=== PATIENT | female | born 1945 | race Caucasian/White ===

== ENCOUNTER 2022-11-08 10:00 | Outpatient (RCR) | payer MEDICARE, SELFPAY | END 2022-12-13 09:07 | disposition home or self-care (01) | LOC: HO.PTCHIC 10:00 | PROVIDERS: PCP Internal Medicine; Visit Provider Colon & Rectal Surgery | DX: M99.05 Segmental and somatic dysfunction of pelvic region (principal); M62.89 Other specified disorders of muscle | CPT/HCPCS: 97110; 97112; 97140; 97162 ==

== ENCOUNTER 2024-12-09 08:19 | Outpatient (AMB) | payer MEDICARE, SELFPAY ==
--- OUTSIDE RECORDS SUMMARY | 2024-12-09 08:23 | XMS_ITS | Clinical Summary ---
Author Organization [address] [place] [address] [place] [phone] Phone Care Team Providers Care Smoking Pipe Maker Name Role Phone Nathaly Knapp MD Primary Care Prov ider Allergies Active Allergy Reactions Criticality Noted Date Comments Celecoxib 08/31/2008 Diclofenac 08/31/2008 Pill Voltaren. Okay with the gel. Latex Swelling 11/07/2021 Naproxen 08/31/2008 Oxymetazoline 06/11/2012 Nlunufecf-Ydmmav-Kvehjmsv-Sc o p 08/31/2008 Quinine Hcl 11/19/2011 Sulfamethoxazole-Trimethoprim 2010 Medications albuterol HFA (PROAIR HFA ; PROVENTIL HFA ; VENTOLIN HFA) 90 mcg/actuation inhaler Inhale 2 puffs every 6 (six) hours if needed for wheezing or shortness of breath. 4 Active meloxicam (MOBIC) 7.5 mg tablet Route: Take 1 Tablet by mouth daily as needed for Pain (TAKE WITH FOOD AND STAY HYDRATED). - Oral 3 Active mometasone (NASONEX) 50 mcg/actuation nasal spray Administer 1-2 sprays into affected nostril(s) 1 (one) time each day. 3 Active cholecalciferol (VITAMIN D-3) 125 mcg (5,000 unit) capsule Take 1 capsule (5,000 Units total) by mouth 1 (one) time each day. 3 Active psyllium husk, sweetleaf, (Konsyl Daily Fiber, stevia,) 3.5 gram powder in packet Take 1 packet by mouth 1 (one) time each day. 1 packet once a day. MIX IN 2-3 OZ OF APPLE SAUCE AND CONSUME 30 MINUTES BEFORE MEAL 2 Active calcium carbonate-cholec alciferol 500 mg-10 mcg (400 unit) per tablet Take 500 mg by mouth 2 (two) times a day. 9 Active Lactobacillus acidophilus (PROBIOTIC ACIDOPHILUS ORAL) Take 1 capsule by mouth 1 (one) time each day. 9 Active carbidopa-levodo pa (SINEMET) 25-100 mg per tablet Take 2 tablets by mouth 4 (four) times a day. Active omeprazole (PriLOSEC) [address] capsule Take 1 capsule (20 mg total) by mouth 1 (one) time each day. 90 capsule 3 4 05/23/20 25 Active cyanocobalamin (VITAMIN B-12) 250 mcg tablet Take 1 tablet (250 mcg total) by mouth 1 (one) time each day. Active ferrous sulfate 325 mg (65 mg elemental iron) tablet Take 1 tablet (325 mg total) by mouth 1 (one) time each day. 90 each 3 5 06/15/19 26 Active cholestyramine (QUESTRAN) 4 gram packetIndication s:Diverticulosis DISSOLVE AND TAKE ONE PACKET BY MOUTH THREE TIMES A DAY WITH MEALS 90 packet 11 5 Active rasagiline (AZILECT) 0.5 mg tablet Take 1 tablet (0.5 mg total) by mouth 1 (one) time each day. Active levothyroxine (SYNTHROID, LEVOTHROID) 112 mcg tablet TAKE ONE TABLET BY MOUTH EVERY DAY 90 tablet 2 5 Active doxycycline (MONODOX) 100 mg capsule Take 1 capsule (100 mg total) by mouth 2 (two) times a day. TAKE ONE CAPSULE BY MOUTH TWICE A DAY FOR 7 DAYS 5 Active Active Problems Problem Noted Date Diagnosed Date History of COVID-19 02/20/2022 Iron deficiency anemia 07/27/2021 Osteoporosis 07/20/2021 Rheumatic fever 06/03/2019 Overview (07/31/2023): In childhood GERD (gastroesophageal reflux disease) 9 Overview (07/31/2023): Dr. Quiroz Night blindness 06/03/2019 RAD (reactive airway disease) 06/03/2019 Parkinson disease ([facility] V24, [facility] V28) Overview (07/31/2023): Diagnosed [address] Quezada Assessment & Plan (10/14/2024 9:42 AM EDT): Assessment & Plan (06/16/2024 8:26 AM EST): Follows with neurology, currently on Sinemet. Recent falls, using the walker for more stability. Previously referred to PT for balance but not seen. Will place a new referral. Recommended to continue the medications as prescribed and keep the appointments with the specialist. Orders: Ambulatory referral to Physical Therapy and Athletic Training; Future Marginal ulcer 09/18/2018 Vertigo 03/05/2018 Tremor 02/24/2018 Diverticulosis 12/29/2017 Aortic atherosclerosis ([facility] V24) 12/17/2017 Overview (07/31/2023): Comments: CXR 06/18/11 calcification of aorta Hypothyroidism 12/17/2017 Assessment & Plan (10/14/2024 9:42 AM EDT): Assessment & Plan (06/16/2024 8:26 AM EST): On Levothyroxine 112 mg a day patient is asymptomatic, last TSH within normal limits, stable. We will continue same medication. Will recheck levels before her next visit. Orders: Thyroid stimulating hormone; Future Vitamin D deficiency 12/17/2017 Internal hemorrhoids 12/05/2017 Allergic rhinitis 12/15/2012 Encounters Date Type Department Care Team Description 10/27/2024 Telephone Adult Medicine [address] [phone] Nathaly Knapp MD Provider Call Back 10/27/2024 Telephone Adult Medicine [address] [phone] Nathaly Knapp MD Health Care Proxy 10/21/2024 10:49 AM EDT - 10/21/2024 11:59 PM EDT Hospital Encounter [facility] [address] [place] [phone] Discharge Disposition: Home or Self Care 10/20/2024 10:00 AM EDT - 10/20/2024 11:59 PM EDT Hospital Encounter [facility] [address] [place] [phone] Discharge Disposition: Home or Self Care 10/19/2024 10:00 AM EDT - 10/19/2024 11:59 PM EDT Hospital Encounter [facility] [address] [place] [phone] Discharge Disposition: Home or Self Care 10/19/2024 Telephone Orthopedics [address] [phone] Randy Izaguirre PA paperwork 10/19/2024 Telephone Adult Medicine [address] [phone] Nathaly Knapp MD Referral 10/19/2024 Lab [facility] [address] [place] [phone] Echo Zambrano MD Seizure disorder (CMS/HCC V24, [facility] V28) 10/18/2024 Lab [facility] [address] [place] [phone] Echo Zambrano MD Seizure disorder ([facility] V24, [facility] V28) 10/15/2024 Lab [facility] [address] [place] [phone] Echo Zambrano MD Seizure disorder ([facility] V24, [facility] V28) 10/14/2024 8:00 AM EDT Office Visit Adult Medicine [address] [phone] Nathaly Knapp MD Encounter for annual general medical examination with abnormal findings in adult (Primary Dx); Hypothyroidism, unspecified type; Parkinson's disease without dyskinesia, with fluctuating manifestations ([facility] V24, [facility] V28); Lymphedema; Advance care planning 10/14/2024 Telephone Adult Medicine [address] [phone] Nathaly Knapp MD Letter for School/Work 10/14/2024 Telephone Orthopedic Surgery [facility] [address] [phone] Caitlyn Oswald MA Letter for School/Work 10/12/2024 2:30 PM EDT Office Visit Orthopedics [address] [phone] Randy Izaguirre PA Closed nondisplaced fracture of shaft of third metacarpal bone of right hand with routine healing, subsequent encounter (Primary Dx) 10/12/2024 2:09 PM EDT - 10/12/2024 11:59 PM EDT Hospital Encounter XRAY [address] [phone] Closed nondisplaced fracture of shaft of third metacarpal bone of right hand with routine healing, subsequent encounter Discharge Disposition: Home or Self Care 10/07/2024 5:14 PM EDT - 10/07/2024 8:41 PM EDT Emergency [facility] [address] [place] [phone] Lower extremity edema (Primary Dx) Discharge Disposition: Home or Self Care 10/07/2024 Telephone Adult Medicine [address] [phone] Nathaly Knapp MD Cellulitis; call back 09/27/2024 9:30 AM EDT Treatment [facility] Occupational Therapy [address] [place] [phone] Ghislaine Brown, LANDEROS 09/23/2024 8:30 AM EDT Treatment [facility] Occup[facility] Therapy [address] [phone] Ghislaine Brown, LANDEROS 09/16/2024 8:30 AM EDT Treatment [facility] Occupational Therapy [address] [place] [phone] Ghislaine Brown, LANDEROS 09/16/2024 Telephone Adult Medicine [address] [phone] Nathaly Knapp MD Forms/questionnaires 09/14/2024 8:00 AM EDT Evaluation [facility] Occupational Therapy [address] [place] [phone] Abhijit De Luna, OT Closed nondisplaced fracture of shaft of third metacarpal bone of right hand with routine healing, subsequent encounter 09/14/2024 Telephone Adult Medicine [address] [phone] Nathaly Knapp MD [facility] [id number]) 09/14/2024 Plan of Care Documentation [facility] [address] [place] [phone] 09/13/2024 9:03 AM EDT - 09/13/2024 11:59 PM EDT Hospital Encounter [address] [phone] Discharge Disposition: Home or Self Care 09/13/2024 8:45 AM EDT Office Visit Orthopedics - [place] [address] [place] [phone] Randy Izaguirre PA Closed nondisplaced fracture of shaft of third metacarpal bone of right hand with routine healing, subsequent encounter (Primary Dx) from Last 3 Months Immunizations Name Administration Dates Next Due Influenza trivalent, 0.5mL ( Fluzone High-dose) 65yo and older 02/11/2023,05/22/2022,03/16/2021,02/11,03/06/2019,03/08/2018,03/26/2017 ,04/02/2016,02/18/2014,03/25/2013 Influenza trivalent, 0.5mL, preservative free (Fluarix; FluLaval; Fluzone) ages 6mo and older (Afluria) 3 years and older 03/12/2012,02/20/2011,03/06/2010 Influenza, Unspecified 05/22/2022 Moderna (age 6mo & older) Bi valent, COVID-19, 0.5 mL or 0.25 mL dosage 10/21/2022 Moderna SARS-CoV-2 COVID-19, mRNA, LNP-S, preservative free 04/12/2021 Pfizer (ages 12 & older) Biv alent, COVID-19 05/22/2022 Pneumococcal conjugate 13 va lent (Prevnar 13, PCV13) 2mo and older 06/07/2015 Pneumococcal polysaccharide 23 valent (Pneumovax 23) 2yo and older 09/01/2012 Td Tetanus diptheria (Tdvax) 7yo and older 07/20/2021 Tdap Tetanus diptheria acell ular pertussis (Boostrix; Adacel) 7yo and older 10/23/2022,07/04/2009 Surgical History Surgery Date Site/Laterality Comments LAPAROSCOPIC GASTRIC BANDING [phone] PROCEDURE: LAP ADJUSTABLE GASTRIC BAND OTHER SURGICAL HISTORY 2010 PROCEDURE: WY LAPS GSTR RSTCV PX W/BYP&SM INT RCNSTJ WRIST SURGERY PROCEDURE: HISTORICAL WRIST SURGERY OTHER SURGICAL HISTORY PROCEDURE: WY OSTEOTOMY CALCANEUS W/WO INTERNAL FIXATION; COMMENT: removal of spurs with Dr. Ugalde TONSILLECTOMY 1957 PROCEDURE: HISTORICAL TONSILLECTOMY CHOLECYSTECTOMY 1985 PROCEDURE: HISTORICAL CHOLECYSTECTOMY APPENDECTOMY PROCEDURE: HISTORICAL APPENDECTOMY NASAL SEPTUM SURGERY PROCEDURE: WY SEPTOPLASTY/SUBMUCOUS RESECJ W/WO CARTILAGE GRF; COMMENT: deviation correction for sinus infections SHOULDER SURGERY 12/08/2017 PROCEDURE: HISTORICAL SHOULDER SURGERY; COMMENT: Dr. 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; COMMENT: Hx of surgery, symptomatic RX per Dr Alejandro 01/2020, unless worsening History of COVID-19 02/20/2022 DX:History o f COVID-19 Thyroid activity decreased Parkinson's disease (CMS/HCC V24, CMS/HCC V28) Family History Medical History Relation Name Comments Parkinson's Disease Aunt Heart attack Father Alzheimer's disease Mother Relation Name Status Comments Aunt Father (Age 76) Mother (Age 86) Sister 1 Janice Alive Sister 2 Christina Alive Social History Tobacco Use Types Packs/Day Years Used Date Smoking Tobacco: Former Smokeless Tobacco: Never Tobacco Cessation:Counseling Given: Not Answered Housing Instability Answer Date Recorde d Are you worried that in the next 2 months you may not have stable housing? No 10/13/2024 Food Access & Nutrition Answer Date Rec orded Do you have access to a vari ety of food including fruits and vegetables? Yes 10/13/2024 Access to Healthcare Answer Date Record ed Within the last 3 months, ho w many times did you visit the emergency department for your medical care? 1 05/05/2024 Health Literacy Answer Date Recorded How often do you need to hav e someone help you when you read instructions, pamphlets, or other written material from your doctor or pharmacy? Rarely 10/13/2024 Caregiver: How often do you need to have someone help you when you read instructions, pamphlets, or other written material from your doctor or pharmacy? Not on file 10/13/2024 Financial Risk Answer Date Recorded How hard is it for you to pa y for the very basics like food, housing, medical care, and air conditioning / heating? Somewhat hard 10/13/2024 Transportation Answer Date Recorded Has the lack of transportati on kept you from meetings, work, or from getting things needed for daily living? No Has the lack of transportati on kept you from medical appointments or from getting medications? No 10/13/2024 Social Isolation Answer Date Recorded How often do you feel lonely or isolated from th ose around you? Rarely 10/13/2024 Food Risk Answer Date Recorded Within the past 12 months we worried whether our food would run out before we got money to buy more. Never true 10/13/2024 Within the past 12 months th e food we bought just didn't last and we didn't have money to get more. Never true 10/13/2024 Dependent Care Answer Date Recorded Do you need help finding or paying for care for your loved ones. For example, manager child or elderly care for an older adult? No 10/13/2024 Education Answer Date Recorded Do you think completing more education or training, like finishing a GED, going to college, or learning a trade, would be helpful for you? No 10/13/2024 Employment and Income Answer Date Recor ded During the last four weeks, have you been actively looking for work? No 10/13/2024 Living Situation Answer Date Recorded What is your living situation? 0 10/13/2024 Comments No Sex and Gender Information Value Date Recorded Sex Assigned at Female 08/27/2024 8:24 PM EDT Legal Sex Female 6:23 AM EST Gender Identity Female 08/27/2024 8:24 PM EDT Sexual Orientation Not on file Obstetrics History Last Filed Vital Signs Vital Sign Reading Time Taken Comments Blood Pressure 122/68 10/14/2024 8:11 AM EDT Pulse 81 10/14/2024 8:11 AM EDT Temperature 36 C (96.8 F) 10/14/2024 8:11 AM EDT Respiratory Rate 14 10/14/2024 8:11 AM EDT Oxygen Saturation 100% 10/07/2024 8:37 PM EDT Inhaled Oxygen Concentration - - Weight 70.6 kg (155 lb 9.6 oz) 10/14/2024 8:11 A M EDT Height 157.5 cm (5' 2 ) 10/14/2024 8:11 AM EDT Body Mass Index 28.46 10/14/2024 8:11 AM EDT Plan of Treatment Upcoming Encounters Date Type Department Care Team (Late st Contact Info) Description 12/15/2024 1:00 PM EDT Office Visit Orthopedics [address] [phone] Randy Izaguirre PA [address] [place] [address] 01/17/2025 9:45 AM EDT Office Visit [facility] [address] [phone] Nathaly Knapp MD [address] [place] [address] Health Maintenance Due Date Last Done Comments Zoster Vaccines (1 of 2) 1996 RSV Immunization Adult Patients (1 - 1-dose 75+ series) 2021 COVID-19 Vaccine ( season) 2024 06/17/2023, 03/03/2023, 10/21/2022, Additional history exists Depression Screening 10/13/2025 10/13/2024 Social Influencers of Health Screening 10/13/2025 10/13/2024 Falls Risk Assessment 10/14/2025 10/14/2024 , 10/14/2024, 09/02/2024, Additional history exists Medicare Annual Wellness Visit 10/14/2025 10/14/2024 Cholesterol Screening (Lipid Panel) 07/11/2028 07/11/2023, 07/11/2023 DTaP,Tdap,and Td Vaccines (4 - Td or Tdap) 10/23/2032 10/23/2022, 07/20/2021, 07/04/2009 Osteoporosis Screening (Bone Density Screening) 07/01/2033 07/01/2023, 12/01/2020 Pneumococcal Vaccine: 50+ Years Completed 06/07/2015, 09/01/2012 Hepatitis C Screening Completed 01/11/2021 Influenza Vaccine Discontinued 02/11/2023, , 05/22/2022, Additional history exists HIB Vaccines Aged Out No longer eligi ble based on patient's age to complete this topic HPV Vaccines Aged Out No longer eligi ble based on patient's age to complete this topic Hepatitis A Vaccines Aged Out No long er eligible based on patient's age to complete this topic Hepatitis B Vaccines Aged Out No long er eligible based on patient's age to complete this topic IPV Vaccines Aged Out No longer eligi ble based on patient's age to complete this topic MMR Vaccines Aged Out No longer eligi ble based on patient's age to complete this topic Meningococcal ACWY Vaccine Aged Out N o longer eligible based on patient's age to complete this topic Meningococcal B Vaccine Aged Out No l onger eligible based on patient's age to complete this topic RSV Immunization Patients Under 20 months Aged Out No longer eligible based on patient's age to complete this topic Varicella Vaccines Aged Out No longer eligible based on patient's age to complete this topic Goals Goal Patient Goal Type Associated Problems Recent Progress Patient-Stated? Author Pt goal General Yes Abhijit De Luna, OT Note: To be able to use my hand so I can go back to work and do what I need to do OT STG 4-6 visits General No Abhijit De Luna, OT Note: Patient will report <=3/10 pain in L hand at rest Pt will report <= 8/10 pain R hand with activity, Patient will demo R wrist AROM>= 35 for increased ease of donning shirt Pt will demo R digits <= 1 CM from DPC to be able to hold a cup Patient will demo improved functional use of R upper extremity as evidenced by Quick Dash score <= 65 to be able to shower with increased ease, and Patient will perform initial HEP MOD I Pt will adhere to precuations MOD I OT LTG 16 visits General No Abhijit De Luna, OT Note: Patient will report <=2/10 pain in R hand, Patient will demo R hand AROM WFL for cooking, Patient will demo R narrow gauge operator strength >= 20# to be able to hold a pot for cooking, Patient will demo improved functional use of R upper extremity as evidenced by Quick Dash score <= 45 to be able to use a mar register, and Patient will perform HEP MOD I Procedures Procedure Name Priority Date/Time Associated Diagnosis Comments CONTINUOUS EEG Routine 10/21/2024 12:11 PM EDT Seizure disorder (CMS/HCC V24, CMS/HCC V28) CONTINUOUS EEG Routine 10/20/2024 3:33 PM EDT Seizure disorder (CMS/HCC V24, CMS/HCC V28) CONTINUOUS EEG Routine 10/19/2024 12:03 PM EDT Seizure disorder (CMS/HCC V24, CMS/HCC V28) XR HAND 3+ VIEWS RIGHT Routine 10/12/2024 2:19 PM EDT Closed nondisplaced fracture of shaft of third metacarpal bone of right hand with routine healing, subsequent encounter CULTURE BLOOD STAT 10/07/2024 6:49 PM EDT VAS US DUPLEX LOWER EXT VENOUS RIGHT STAT 10/07/2024 6:27 PM EDT Lower extremity edema C-REACTIVE PROTEIN STAT Add-on 10/07/2024 5: 46 PM EDT CBC WITH AUTO DIFFERENTIAL STAT 10/07/2024 5:46 PM EDT LACTATE, WITH REFLEX STAT 10/07/2024 5:46 PM EDT COMPREHENSIVE METABOLIC PANEL STAT 10/07/2024 5:46 PM EDT CBC AND DIFFERENTIAL STAT 10/07/2024 5:46 PM EDT CULTURE BLOOD STAT 10/07/2024 5:46 PM EDT XR HAND 3+ VIEWS RIGHT Routine 09/13/2024 9:11 AM EDT Closed nondisplaced fracture of shaft of third metacarpal bone of right hand with routine healing, subsequent encounter LIPID PANEL Routine 07/11/2023 DXA BONE DENSITY STUDY 1+ SITS AXIAL SKEL Routine 07/01/2023 11:41 AM EST Asymptomatic menopausal state HEPATITIS C SCREENING Routine 01/11/2021 from Last 3 Months or Most Recently Relevant to Health Maintenance Results * Continuous EEG (10/21/2024 12:11 PM EDT) Echo Berger MD - 11/02/2024 3:23 PM EDT Table formatting from the original result was not included. Images from the original result were not included. Neuro[facility] [address] [place] [address] Ambulatory Electroencephalogram Report Date of service: 10/21/24 Patient Name: Zahida Gonzalez Date of : 1945 Age: 79 y.o. Gender: female Procedure Order: Continuous EEG Ordering Provider: Echo Zambrano MD Reason for Exam: Order Questions Answers Type of monitoring Unmonitored With video? No Diagnosis listed on Order: Seizure disorder (CMS/HCC V24, CMS/HCC V28) This is a recurrent day study. Please see report with final results. us Echo Zambrano MD NEUROLOGY ORDERABLES Final Result * Continuous EEG (10/20/2024 3:33 PM EDT) Echo Berger MD - 10/29/2024 12:27 PM EDT Table formatting from the original result was not included. Images from the original result were not included. [facility] [address] [place] [address] Ambulatory Electroencephalogram Report Date of service: 10/20/24 Patient Name: Zahida Gonzalez Date of : 1945 Age: 79 y.o. Gender: female Procedure Order: Continuous EEG Ordering Provider: Echo Zambrano MD Reason for Exam: Order Questions Answers Type of monitoring Unmonitored With video? No Diagnosis listed on Order: Seizure disorder ([facility] V24, [facility] V28) Procedure Performed: 48 hr EEG EEG Technical Description: This study was performed using the 10-20 [employer] Electrode System placement and single channel EKG electrode on Trex recorder. Settings included: low frequency filter of 1 Hz, high frequency filter of 70 Hz, sensitivity of 7 uV/mm, a display speed of 30 mm/sec, with a 60 Hz notched filter applied as appropriate. Modifications in these parameters were made as necessary for further waveform resolution. Video Recording: No Description: This is a 48-hour ambulatory EEG. Patient did not keep a diary and did not report any significant events. Each day of EEG was separately reviewed and included wakefulness and sleep. Background EEG rhythm during wakefulness was symmetric alpha posteriorly lower amplitude faster anteriorly. During both days left temporal sharp waves were noted with phase reversal at T3. There was also a rare right temporal sharp wave with phase reversal at T4. Cardiac lead did not reveal any significant abnormality. Impression: Abnormal 48-hour ambulatory EEG suggestive of bitemporal irritability. Echo Zambrano MD NEUROLOGY ORDERABLES Final Result * Continuous EEG (10/19/2024 12:03 PM EDT) Narrative Echo Zambrano MD - 11/02/2024 3:22 PM EDT Table formatting from the original result was not included. Images from the original result were not included. [facility] [address] [place] [id number] Ambulatory Electroencephalogram Report Date of service: 10/19/24 Patient Name: Zahida Gonzalez Date of : 1945 Age: 79 y.o. Gender: female Procedure Order: Continuous EEG Ordering Provider: Echo Zambrano MD Reason for Exam: Order Questions Answers Type of monitoring Unmonitored With video? No Diagnosis listed on Order: Seizure disorder ([facility] V24, [facility] V28) This is a recurrent day study. Please see report with final results. us Echo Zambrano MD NEUROLOGY ORDERABLES Final Result * XR Hand 3+ Views Right (10/12/2024 2:19 PM EDT) Only the most recent of2 resultswithin the time period is included. Anatomical Region Laterality Modality Upper Extremities, Hand Right Radiogra phic Imaging 10/12/2024 11:0 3 PM EDT Impressions 10/12/2024 11:10 PM EDT Progressive healing of the 3rd metacarpal fracture. POS - [id number] -------- FINAL REPORT -------- Dictated By: Augustina Colon Dictated Date: 10/12/2024 23:03 ET Assigned Physician: Augustina Colon Reviewed and Electronically Signed By: Augustina Colon Signed Date: 10/12/2024 23:10 ET Workstation ID: [id number] Transcribed By: Self Edit Transcribed Date: 10/12/2024 23:03 ET Narrative 10/12/2024 11:10 PM EDT EXAM: Right hand x-ray HISTORY: Follow-up 3rd metacarpal fracture. COMPARISON: 09/13/2024 and 08/20/2024 FINDINGS: 3 views were performed. Progressive bony callus formation and less distinct appearance of the oblique mildly displaced fracture of the distal 3rd metacarpal shaft. No new fracture. Multifocal degenerative changes which are most prominent at the 1st CMC and 1st MCP joints have similar appearance. Procedure Note Augustina Colon MD - 10/12/2024 EXAM: Right hand x-ray HISTORY: Follow-up 3rd metacarpal fracture. COMPARISON: 09/13/2024 and 08/20/2024 FINDINGS: 3 views were performed. Progressive bony callus formation and less distinct appearance of theoblique mildly displaced fracture of the distal 3rd metacarpal shaft. Nonew fracture. Multifocal degenerative changes which are most prominent atthe 1st CMC and 1st MCP joints have similar appearance. IMPRESSION: Progressive healing of the 3rd metacarpal fracture. POS - [id number] -------- FINAL REPORT -------- Dictated By: Augustina Colon Dictated Date: 10/12/2024 23:03 ET Assigned Physician: Augustina Colon Reviewed and Electronically Signed By: Augustina Colon Signed Date: 10/12/2024 23:10 ET Workstation ID: [id number] Transcribed By: Self Edit Transcribed Date: 10/12/2024 23:03 ET Randy PINEDA IMG XR PROCEDURES Final Result * Blood culture (10/07/2024 6:49 PM EDT) Only the most recent of2 resultswithin the time period is included. Culture, Blood No growth at 5 days 10/12/2024 8:01 PM EDT [facility] Blood Venous blood specimen / Unknown Venipuncture / Unknown 10/07/2024 6:49 PM EDT 10/07/2024 7:14 PM EDT Dominic Mcdaniel DO LAB MICROBIOLOGY - GENERAL ORD ERABLES Final Result [facility] [address] [place] [address], [place] [phone] * Vascular US Duplex Lower Extremity Venous Right (10/07/2024 6:27 PM EDT) Anatomical Region Laterality Modality Vascular, Abdomen Ultrasound 10/07/2024 6:45 PM EDT Impressions 10/07/2024 6:45 PM EDT NO RIGHT LOWER EXTREMITY DEEP VENOUS THROMBOSIS. -------- FINAL REPORT -------- Dictated By: ROCKY DICKENS Dictated Date: 10/07/2024 18:45 ET Assigned Physician: ROCKY DICKENS Reviewed and Electronically Signed By: ROCKY DICKENS Signed Date: 10/07/2024 18:45 ET Workstation ID: [id number] Transcribed By: Self Edit Transcribed Date: 10/07/2024 18:45 ET Narrative 10/07/2024 6:45 PM EDT PROCEDURE: VAS US DUPLEX LOWER EXT VENOUS RIGHT INDICATION: Edema, erythema TECHNIQUE: 2-D and color Doppler imaging of the right lower extremity venous vasculature with compression and augmentation maneuvers. COMPARISON: No priors available. FINDINGS: There is normal flow, compression, and augmentation from the common femoral through the popliteal vein. Visualized calf veins are patent Procedure Note Rocky Dickens MD - 10/07/2024 PROCEDURE: VAS US DUPLEX LOWER EXT VENOUS RIGHT INDICATION: Edema, erythema TECHNIQUE: 2-D and color Doppler imaging of the right lower extremityvenous vasculature with compression and augmentation maneuvers. COMPARISON: No priors available. FINDINGS: There is normal flow, compression, and augmentation from the commonfemoral through the popliteal vein. Visualized calf veins are patent IMPRESSION: NO RIGHT LOWER EXTREMITY DEEP VENOUS THROMBOSIS. -------- FINAL REPORT -------- Dictated By: ROCKY DICKENS Dictated Date: 10/07/2024 18:45 ET Assigned Physician: ROCKY DICKENS Reviewed and Electronically Signed By: ROCKY DICKENS Signed Date: 10/07/2024 18:45 ET Workstation ID: [id number] Transcribed By: Self Edit Transcribed Date: 10/07/2024 18:45 ET Carlota PINEDA CV VASCULAR PROCEDURES Fin al Result * Lactate, with reflex (10/07/2024 5:46 PM EDT) LACTIC ACID 0.8 0.4 - 2.0 mmol/L LAB CHEMISTRY METHOD 10/07/2024 6:44 PM EDT [facility] Blood Venous blood specimen / Unknown Venipuncture / Unknown 10/07/2024 5:46 PM EDT 10/07/2024 5:50 PM EDT us Dominic Mcdaniel DO LAB BLOOD ORDERABLES Final Res ult [facility] [address] [place] [address], [place] [phone] * (ABNORMAL) CBC auto differential (10/07/2024 5:46 PM EDT) [facility] WBC 5.6 4.8 - 10.8 K/mcL LAB HEMETOLOGY METHOD 10/07/2024 5:55 PM EDT [facility] RBC 4.40 3.80 - 4.80 M/mcL LAB HEMETOLOGY METHOD 10/07/2024 5:55 PM EDT [facility] Hemoglobin 11.7 11.5 - 16.0 g/dL LAB HEMETOLOGY METHOD 10/07/2024 5:55 PM EDT [facility] Hematocrit 38.2 35.0 - 47.0 % LAB HEMETOLOGY METHOD 10/07/2024 5:55 PM EDT [facility] MCV 87.4 79.0 - 98.0 FL LAB HEMETOLOGY METHOD [facility] MCH 26.8(L) 27.0 - 32.0 pcg LAB HEMETOLOGY METHOD 10/07[facility]2024 5:[facility] MCHC 30.6(L) 32.0 - 37.0 g/dL LAB HEMETOLOGY METHOD 10/07/2024 5:[facility] RDW 15.9(H) 11.0 - 15.0 % LAB HEMETOLOGY METHOD 10/07/2024 5:55 PM EDT [facility] Platelets 261 130 - 400 K/mcL LAB HEMETOLOGY METHOD 10/07[facility]2024 5[facility] MPV 9.5 7.0 - 11.0 FL LAB HEMETOLOGY METHOD 10/07/2024 5:[facility] NRBC 0.0 <1.0 % LAB HEMETOLOGY METHOD 10/07/2024 5:55 PM EDT [facility] NRBC Absolute 0.00 <0.10 K/mcL LAB HEMETOLOGY METHOD 10/07/2024 5:55 PM EDT [facility] Neutrophils Relative 71.9 % LAB HEMETOLOGY METHOD 10/07/2024 5:55 PM [facility] Lymphocytes Relative 16.0 % LAB HEMETOLOGY METHOD [facility]/07[facility]2024 5[facility] Monocytes Relative 9.2 % LAB HEMETOLOGY METHOD 10/07/2024 5:55 PM [facility] Eosinophils Relative 2.0 % LAB HEMETOLOGY METHOD 10/07/2024 5:55 PM [facility] Basophils Relative 0.5 % LAB HEMETOLOGY METHOD 10/07/2024 5:55 PM [facility] Immature Granulocytes Relative 0.4 % LAB HEMETOLOGY METHOD 10/07/2024 5:55 PM [facility] Neutrophils Absolute 4.06 1.50 - 7.00 K/mcL LAB HEMETOLOGY METHOD 10/07/2024 5:55 PM [facility] Lymphocytes Absolute 0.90(L) 1.00 - 5.00 K/mcL LAB HEMETOLOGY METHOD 10/07/2024 5:55 PM [facility] Monocytes Absolute 0.52 0.20 - 1.00 K/mcL LAB HEMETOLOGY METHOD 10/07/2024 5:55 PM [facility] Eosinophils Absolute 0.11 0.00 - 0.50 K/mcL LAB HEMETOLOGY METHOD 10/07/2024 5:55 PM [facility] Basophils Absolute 0.03 0.00 - 0.20 K/mcL LAB HEMETOLOGY METHOD 10/07/2024 5:55 PM [facility] Immature Granulocytes Absolute 0.02 0.00 - 0.03 K/mcL LAB HEMETOLOGY METHOD 10/07/2024 5:55 PM EDT [facility] Blood Venous blood specimen / Unknown Venipuncture / Unknown 10/07/2024 5:46 PM EDT 10/07/2024 5:51 PM EDT Dominic Mcdaniel DO LAB BLOOD ORDERABLES Final Res ult Performing Organization Address City/[facility]/ZIP Co de Phone Number [facility] [address] [place] [address], [place] [phone] * C-reactive protein (10/07/2024 5:46 PM EDT) Pathologist [facility] C-Reactive Protein <0.29 <=0.50 mg/dL LAB CHEMISTRY METHOD 10/07/2024 7:24 PM EDT [facility] Blood Venous blood specimen / Unknown Venipuncture / Unknown 10/07/2024 5:46 PM EDT 10/07/2024 5:50 PM EDT Carlota PINEDA LAB BLOOD ORDERABLES Final Result Performing Organization Address [facility]/ZIP Co de Phone Number [facility] [address] [place] [address], [place] [phone] * (ABNORMAL) Comprehensive metabolic panel (10/07/2024 5:46 PM EDT) Pathologist [facility] Sodium 142 133 - 145 mmol/L LAB CHEMISTRY METHOD 10/07/2024 6:50 PM EDT [facility] Potassium 4.3 3.5 - 5.5 mmol/L LAB CHEMISTRY METHOD 10/07/2024 6:50 PM EDT [facility] Chloride 107 96 - 110 mmol/L LAB CHEMISTRY METHOD 10/07/2024 6:50 PM EDT [facility] CO2 30 21 - 32 mmol/L LAB CHEMISTRY METHOD 10/07/2024 6:50 PM EDT [facility] Anion Gap 5 3 - 11 LAB CHEMISTRY METHOD 10/07/2024 6:50 PM [facility] Glucose 125(H) 70 - 100 mg/dL LAB CHEMISTRY METHOD 10/07/2024 6:50 PM [facility] BUN 30(H) 5 - 25 mg/dL LAB CHEMISTRY METHOD 10/07/2024 6:50 PM [facility] Creatinine 0.82 0.50 - 1.10 mg/dL LAB CHEMISTRY METHOD 10/07/2024 6:50 PM [facility] eGFR 73 >=60 mL/min/1. 73m2 LAB CHEMISTRY METHOD 10/07/2024 6:50 PM [facility] Comment:Calculation based on the Chronic Kidney Disease Epidemiology Collaboration (CKD-EPI) equation refit without adjustment for race. BUN/Creatinine Ratio 36.6 LAB CHEMISTRY METHOD 10/07/2024 6:50 PM [facility] Calcium 9.0 8.5 - 10.5 mg/dL LAB CHEMISTRY METHOD 10/07/2024 6:50 PM [facility] AST (SGOT) 26 10 - 42 unit/L LAB CHEMISTRY METHOD 10/07/2024 6:50 PM [facility] ALT (SGPT) 9(L) 10 - 60 unit/L LAB CHEMISTRY METHOD 10/07/2024 6:50 PM [facility] Alkaline Phosphatase 122(H) 42 - 121 unit/L LAB CHEMISTRY METHOD 10/07/2024 6:50 PM [facility] Total Protein 7.1 6.0 - 8.0 g/dL LAB CHEMISTRY METHOD 10/07/2024 6:50 PM [facility] Albumin 3.4 3.2 - 5.0 g/dL LAB CHEMISTRY METHOD 10/07/2024 6:50 PM [facility] Total Bilirubin 0.4 0.0 - 1.4 mg/dL LAB CHEMISTRY METHOD 10/07/2024 6:50 PM EDT [facility] Blood Venous blood specimen / Unknown Venipuncture / Unknown 10/07/2024 5:46 PM EDT 10/07/2024 5:50 PM EDT Dominic Mcdaniel DO LAB BLOOD ORDERABLES Final Res ult [facility] [address] [place] [address], [place] [phone] * (ABNORMAL) Lipid panel (07/11/2023) LDL/HDL Ratio 2 0 - 4 Triglycerides 91 0 - 150 mg/dL Cholesterol 209(A) 0 - 200 mg/dL HDL 124 >=40 mg/dL LDL Cholesterol 67 0 - 100 mg/dL Blood Venous blood specimen / Unknown Historical Provider LAB BLOOD ORDERABLES Marisol l Result * DXA BONE DENSITY STUDY 1+ SITS AXIAL SKEL (07/01/2023 11:41 AM EST) Anatomical Region Laterality Modality Bone Densitometr y 02/11/2023 9:20 AM EDT Narrative 07/01/2023 7:06 PM EST BONE DENSITY SCAN (DEXA): FINDINGS: Lumbar Spine L1-L3, L4 excluded T-score is -0.8. (SD relative to 20-29 y/o adult) Z-score is 1.6. (SD relative to age matched peers) This is considered normal by WHO criteria. Left Hip T-score is -2.6. Z-score is -0.4. This is considered osteoporosis by WHO criteria. Comparison exam(s): 12/01/2020. 4.5% loss of left hip bone mineral density which is statistically significant at the 95% confidence level. No statistically significant change in lumbar spine bone mineral density. Lateral survey view of the thoracolumbar spine shows no significant compression deformities. IMPRESSION: IMPRESSION: Osteoporosis by WHO criteria. The [facility] Department of Internal Medicine recommends using National Osteoporosis Foundation (NOF) guidelines in treatment decisions related to osteoporosis. NOF guidelines suggest considering treatment for postmenopausal women and men aged 50 or older presenting with the following: History of hip or vertebral fracture. T-score = -2.5 (DXA) at the femoral neck, total hip, or spine, after appropriate evaluation to exclude secondary causes. Low bone mass (T-score between -1.0 and -2.5 at the femoral neck or spine) AND a 10-year probability of a hip fracture = 3% OR a 10-year probability of a major osteoporosis-related fracture = 20% based on the [place]-adapted WHO algorithm Please note that all treatment decisions require clinical judgment and consideration of individual patient factors, including patient preferences, co-morbidities, previous drug use, risk factors not captured in the FRAX model (e.g., frailty, falls, vitamin D deficiency, increased bone turnover, interval significant decline in bone density) and possible under- or over-estimation of fracture risk by FRAX. Optional alternative screening schedule based on alec Chavarria., [facility] June 27, 2011 for patients with osteopenia (based on hip BMD T-score) is as follows: * advanced osteopenia (T scores -2.00 to -2.49), BMD testing every year * moderate osteopenia (T scores -1.50 to -1.99), BMD testing every 5 years mild osteopenia or normal BMD (T scores -1.50 and higher), BMD testing every 15 years Procedure Note Augustina Colon MD - 01/26/2024 BONE DENSITY SCAN (DEXA): FINDINGS: Lumbar Spine L1-L3, L4 excluded T-score is -0.8. (SD relative to 20-29 y/o adult) Z-score is 1.6. (SD relative to age matched peers) This is considered normal by WHO criteria. Left Hip T-score is -2.6. Z-score is -0.4. This is considered osteoporosis by WHO criteria. Comparison exam(s): 12/01/2020. 4.5% loss of left hip bone mineraldensity which is statistically significant at the 95% confidence level. No statisticallysignificant change in lumbar spine bone mineral density. Lateral survey view of the thoracolumbar spine shows no significantcompression deformities. IMPRESSION: IMPRESSION: Osteoporosis by WHO criteria. The [facility] Department of Internal Medicine recommendsusing National Osteoporosis Foundation (NOF) guidelines in treatment decisions related toosteoporosis. NOF guidelines suggest considering treatment for postmenopausal women and menaged 50 or older presenting with the following: History of hip or vertebral fracture. T-score = -2.5 (DXA) at the femoral neck, total hip, or spine, afterappropriate evaluation to exclude secondary causes. Low bone mass (T-score between -1.0 and -2.5 at the femoral neck or spine)AND a 10-year probability of a hip fracture = 3% OR a 10-year probability of a majorosteoporosis-related fracture = 20% based on the [place]-adapted WHO algorithm Please note that all treatment decisions require clinical judgment andconsideration of individual patient factors, including patient preferences, co- morbidities,previous drug use, risk factors not captured in the FRAX model (e.g., frailty, falls, vitaminD deficiency, increased bone turnover, interval significant decline in bone density) andpossible under- or over-estimation of fracture risk by FRAX. Optional alternative screening schedule based on alec Chavarria., [facility] for patients with osteopenia (based on hip BMD T-score) is as follows: * advanced osteopenia (T scores -2.00 to -2.49), BMD testing every year * moderate osteopenia (T scores -1.50 to -1.99), BMD testing every 5years mild osteopenia or normal BMD (T scores -1.50 and higher), BMD testingevery 15 years Maribel PINEDA G DXA PROCEDURES Final Result * Hepatitis C Screening (01/11/2021) Pathologist Count includes the [facility] Hepatitis C Screening Abstracted Historical Provider HEALTH MAINTENANCE Final Result from Last 3 Months or Most Recently Relevant to Health Maintenance Insurance [employer] Advance Directives * Full Code - Confirmed (Latest Code Status on File) Date Activated Date Inactivated Comments 08/28/2024 1:37 AM 08/28/2024 1:[address] at[facility] was ascertained in the following way: Code status discussion: discussion with patient To update the patient's code status, place a code status order. Do not modify or discontinue any currently active code status orders. 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
--- NOTE | 2024-12-09 08:30 | A.OFFVIS_ITS ---
Intake Visit Reasons: Sooner appt falls and eyesight issues HPI Comments Details: 79 years old woman with Parkinson's disease that started around 2018 with the right hand shaking and difficulty walking. She also has significant osteoarthritis compounding her difficulty for balance and walking and resulting in multifactorial gait disorder. In 2024, she was admitted at [facility] with an episode of loss of consciousness and reported that she had been having episodes of seeing tunnel vision and then collapsing. Her MRI of brain had revealed mild microvascular ischemic disease an EEG at [facility] in 2024 revealed bitemporal sharps. She was here complaining the recently she was working and standing when she had another episode and she could not explain that episode. She fell down and sustained minor injuries. She had been taking the medicine. Physical Exam Neuro Other: Mental Status: Alert with normal orientation and attention. Normal spontaneous speech, fluency, and comprehension. No obvious issues with mood and memory. Affect is appropriate. Cranial Nerves: CN II: Visual peterson full to confrontation, visual acuity intact. CN III, IV, : Pupils equal, round, reactive to light and accommodation. Extraocular movements are normal. CN V: Facial sensation is normal. CN VII: Facial movements symmetrical. CN VIII: Hearing intact to bedside conversation is normal. Motor: Bulk and tone normal in all extremities. No significant muscle weakness in arms and legs. No drift. Gait and Station: No obvious gait abnormality. No ataxia or instability. Sensory: Intact to light touch, pinprick, and vibration. Romberg is negative. Extrapyramidal: Full facial expressions and blinking. No rigidity. Movements are appropriate with no tremor or abnormality. Speech: Normal; no dysarthria or tremor. Assessment & Plan Assessment & Plan (1) Parkinson disease: Comment: CT brain WO at [facility] in Aug 2024: OK 48 hr EEG at [facility] in October 2024: Bitemp sharps CT brain WO at [facility] in Jul 2024: OK EEG at off in Apr 2024: WNL CT brain WO at [facility] in Apr 2023: Minimal atrophy MRI brain WO at [facility] in Apr 2023: Mild MVD Code(s): G20.A1 - Parkinson's disease without dyskinesia, without mention of fluctuations Category: Medical Qualifiers: Dyskinesia presence: without dyskinesia Fluctuating manifestations: with fluctuating manifestations Qualified Code(s): G20.A2 - Parkinson's disease without dyskinesia, with fluctuations (2) Seizure disorder: Code(s): G40.909 - Epilepsy, unspecified, not intractable, without status epilepticus Category: Medical (3) Osteoarthritis: Code(s): M19.90 - Unspecified osteoarthritis, unspecified site Category: Medical Qualifiers: Osteoarthritis location: unspecified site Osteoarthritis type: other Qualified Code(s): M19.90 - Unspecified osteoarthritis, unspecified site (4) Multifactorial gait disorder: Code(s): R26.89 - Other abnormalities of gait and mobility Category: Medical Plan 1. Parkinson's disease: She would continue carbidopa levodopa 25 were 102 tablets 4 times a day with rasagiline 0.5 mg daily 2. Seizure disorder: She has advised to increase dose of levetiracetam to 500 mg twice a day 3. Multifactorial gait disorder: She should use walker on regular basis and take appropriate precautions to avoid any falls. Medications: New levetiracetam 500 mg PO BID 180 tabs 0RF 90 days carbidopa-levodopa 25-100 mg (Sinemet) 2 tabs PO QID 720 tabs 0RF 90 days rasagiline 0.5 mg PO DAILY 90 tabs 0RF 90 days Coding Level of Care Code Est Pt Level 4 (33837) Diagnoses Parkinson's disease without dyskinesia, with fluctuating manifestations G20.A2 Dyskinesia presence: without dyskinesia Fluctuating manifestations: with fluctuating manifestations Seizure disorder G40.909 Other type of osteoarthritis, unspecified site M19.90 Osteoarthritis location: unspecified site Osteoarthritis type: other Multifactorial gait disorder R26.89
== END 2024-12-09 08:46 | disposition home or self-care (01) ==
LOC: HO.HSM 08:19
PROVIDERS: PCP Internal Medicine; Visit Provider Psychiatry & Neurology Neurology
DX: G20.A2 Parkinson's disease without dyskinesia, with fluctuations (principal); G40.909 Epilepsy, unspecified, not intractable, without status epilepticus; M19.90 Unspecified osteoarthritis, unspecified site; R26.89 Other abnormalities of gait and mobility
CPT/HCPCS: 99214

== ENCOUNTER → 2024-12-09 08:19 | Outpatient (BNVA) | payer MEDICARE, SELFPAY | PROVIDERS: PCP Internal Medicine; Visit Provider Psychiatry & Neurology Neurology | DX: G20.A2 Parkinson's disease without dyskinesia, with fluctuations (principal); G40.909 Epilepsy, unspecified, not intractable, without status epilepticus; M19.90 Unspecified osteoarthritis, unspecified site; R26.89 Other abnormalities of gait and mobility | CPT/HCPCS: 99212 ==

== ENCOUNTER 2025-01-27 14:05 | Outpatient (AMB) | payer MEDICARE, SELFPAY ==
--- OUTSIDE RECORDS SUMMARY | 2025-01-27 14:14 | XMS_ITS | Clinical Summary ---
Author Organization [address] [place] [address] [place] [phone] Phone Care Team Providers Care Regulatory Submissions Specialist Name Role Phone Nathaly Knapp MD Primary Care Prov ider Allergies Active Allergy Reactions Criticality Noted Date Comments Celecoxib 08/31/2008 Diclofenac 08/31/2008 Pill Voltaren. Okay with the gel. Latex Swelling 11/07/2021 Naproxen 08/31/2008 Oxymetazoline 06/11/2012 Ppqealkoo-Pmhovq-Vbatotji-Sc o p 08/31/2008 Quinine Hcl 11/19/2011 Sulfamethoxazole-Trimethoprim 2010 Medications albuterol HFA (PROAIR HFA ; PROVENTIL HFA ; VENTOLIN HFA) 90 mcg/actuation inhaler Inhale 2 puffs every 6 (six) hours if needed for wheezing or shortness of breath. 4 Active mometasone (NASONEX) 50 mcg/actuation nasal spray [...] EVERY DAY 90 tablet 2 5 Active levETIRAcetam (KEPPRA) 250 mg tablet Take 1 tablet (250 mg total) by mouth 2 (two) times a day. 5 Active tiZANidine (ZANAFLEX) 2 mg tablet TAKE ONE TABLET BY MOUTH EVERY 8 HOURS NEEDED FOR MUSCLE SPASMS FOR 5 DAYS 5 Active Active Problems Problem Noted Date Diagnosed Date History of COVID-19 02/20/2022 Iron deficiency anemia 07/27/2021 Osteoporosis 07/20/2021 Rheumatic fever 06/03/2019 Overview (07/31/2023): In childhood GERD (gastroesophageal reflux disease) 9 Overview (07/31/2023): Dr. Quiroz Night blindness 06/03/2019 RAD (reactive airway disease) 06/03/2019 Parkinson disease ([facility] V24, [facility] V28) Overview (07/31/2023): Diagnosed 2018 Follows with [...] 03/05/2018 Tremor 02/24/2018 Diverticulosis 12/29/2017 Aortic atherosclerosis ([facility] V24) 12/17/2017 Overview (07/31/2023): Comments: CXR 06/18/11 [...] Encounters Date Type Department Care Team Description 12/15/2024 1:00 PM EDT Office Visit Orthopedics - [address] [phone] Randy Izaguirre PA Closed nondisplaced fracture of shaft of third metacarpal bone of right hand with routine healing, subsequent encounter (Primary Dx); Closed nondisplaced fracture of third metacarpal bone of right hand with routine healing, unspecified portion of metacarpal, subsequent encounter 12/15/2024 12:15 PM EDT - 12/15/2024 11:59 PM EDT Hospital Encounter [address] [phone] Closed fracture of right hand with routine healing, subsequent encounter Discharge Disposition: Home or Self Care 12/13/2024 Telephone Adult Medicine [address] [phone] Nathaly Sr MD Referral (Ortho) 10/27/2024 Telephone Adult Medicine [address] [phone] Nathaly Sr MD Provider Call Back 10/27/2024 [facility] [employer] [facility] Adult [address] [phone] Nathaly Sr MD Health Care Proxy from Last 3 Months Immunizations Name Administration [...] Surgery Date Site/Laterality Comments LAPAROSCOPIC GASTRIC BANDING [id number] PROCEDURE: LAP ADJUSTABLE GASTRIC BAND OTHER SURGICAL HISTORY 2010 PROCEDURE: UT LAPS GSTR RSTCV PX W/BYP&SM INT RCNSTJ WRIST SURGERY PROCEDURE: HISTORICAL WRIST SURGERY OTHER SURGICAL HISTORY PROCEDURE: UT OSTEOTOMY CALCANEUS W/WO INTERNAL FIXATION; COMMENT: removal of spurs with Dr. Ugalde TONSILLECTOMY 1957 PROCEDURE: HISTORICAL TONSILLECTOMY CHOLECYSTECTOMY 1984 PROCEDURE: HISTORICAL CHOLECYSTECTOMY APPENDECTOMY PROCEDURE: HISTORICAL APPENDECTOMY NASAL SEPTUM SURGERY PROCEDURE: UT SEPTOPLASTY/SUBMUCOUS RESECJ W/WO CARTILAGE GRF; COMMENT: deviation correction for sinus infections SHOULDER SURGERY 12/08/2017 PROCEDURE: HISTORICAL SHOULDER SURGERY; COMMENT: Dr. 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 For example, early childhood assistant or elderly care for an older adult? [...] Care Team (Late st Contact Info) Description 02/09/2025 8:00 AM EDT Office Visit Adult Medicine [facility] [address] [place], [place] [phone] Maribel Roberts PA [address] [place] [address] Health Maintenance Due Date Last Done Comments Zoster Vaccines (1 of 2) 1996 RSV Immunization Adult Patients (1 - 1-dose 75+ series) 2021 COVID-19 Vaccine ( season) 2024 06/17/2023, 03/03/2023, 10/21/2022, Additional history exists Social Influencers of Health Screening 10/13/2025 10/13/2024 [...] Discontinued 02/11/2023, , 05/22/2022, Additional history exists Depression Screening Completed 10/13/2024 HIB Vaccines Aged Out No longer eligi [...] MOD I OT LTG 16 visits General Abhijit Patel, OT Note: Patient will report <=2/10 pain in R hand, Patient will demo R hand AROM WFL for cooking, 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 >= 20# to be able to hold a pot for cooking, Patient will demo improved functional use of R upper extremity as evidenced by Quick Dash score <= 45 to be able to use a mar register, and Patient will perform HEP MOD I Procedures Procedure Name Priority Date/Time Associated Diagnosis Comments XR HAND 3+ VIEWS RIGHT Routine 12/15/2024 12:39 PM EDT Closed fracture of right hand with routine healing, subsequent encounter LIPID PANEL Routine 07/11/2023 DXA BONE DENSITY STUDY 1+ SITS AXIAL SKEL Routine 07/01/2023 11:41 AM EST Asymptomatic menopausal state HEPATITIS C SCREENING Routine 01/11/2021 from Last 3 Months or Most Recently Relevant to Health Maintenance Results * XR Hand 3+ Views Right (12/15/2024 12:39 PM EDT) Anatomical Region Laterality Modality Upper Extremities, Hand Right [facility] 12/15/2024 5:18 PM EDT Impressions 12/15/2024 5:20 PM EDT Healing fracture third metacarpal as described. -------- FINAL REPORT -------- Dictated By: Zeinab Casanova Dictated Date: 12/15/2024 17:18 ET Assigned Physician: Zeinab Casanova Reviewed and Electronically Signed By: Zeinab Casanova Signed Date: 12/15/2024 17:20 ET Workstation ID: [id number] Transcribed By: Self Edit Transcribed Date: 12/15/2024 17:18 ET Narrative 12/15/2024 5:20 PM EDT RIGHT HAND VIEWS: 3 HISTORY: Fracture. Prior: Right hand 10/12/2024, 09/13/2024, and 08/20/2024. FINDINGS: There has been further healing of the fracture of the distal third metacarpal shaft. The fracture line is no longer visible. Degenerative changes of the right hand, most pronounced at the first CMC joint, are unchanged. Procedure Note Zeinab Casanova MD - 12/15/2024 RIGHT HAND VIEWS: 3 HISTORY: Fracture. Prior: Right hand 10/12/2024, 09/13/2024, and 08/20/2024. FINDINGS: There has been further healing of the fracture of the distal thirdmetacarpal shaft. The fracture line is no longer visible. Degenerative changes of the right hand, most pronounced at the first CMCjoint, are unchanged. IMPRESSION: Healing fracture third metacarpal as described. -------- FINAL REPORT -------- Dictated By: Zeinab Casanova Dictated Date: 12/15/2024 17:18 ET Assigned Physician: Zeinab Casanova Reviewed and Electronically Signed By: Zeinab Casanova Signed Date: 12/15/2024 17:20 ET Workstation ID: [id number] Transcribed By: Self Edit Transcribed Date: 12/15/2024 17:18 ET Randy PINEDA IMG XR PROCEDURES Final Result * (ABNORMAL) Lipid panel (07/11/2023) LDL/HDL Ratio [...] IMPRESSION: IMPRESSION: Osteoporosis by WHO criteria. The [facility] Department of Internal Medicine recommends using [...] IMPRESSION: IMPRESSION: Osteoporosis by WHO criteria. The [facility] Department of Internal Medicine recommendsusing National [...] higher), BMD testingevery 15 years Maribel PINEDA IMG DXA PROCEDURES Final Result * Hepatitis C Screening (01/11/2021) Hepatitis C Screening Abstracted Historical Provider MD HEALTH MAINTENANCE Final Result from Last 3 [...] currently active code status orders. Care Teams Regulatory Submissions Specialist Relationship Specialty Start Date End Date Nathaly Knapp MD [address] [place] [phone] PCP - General Internal Medicine 01/07/22
--- OUTSIDE RECORDS SUMMARY | 2025-01-27 14:15 | XMS_ITS | Clinical Summary ---
Author Organization Formerly [facility] Address [address] [place] [phone] Phone Care Team Providers Care Recovery Collector Name Role Phone Nathaly Correa MD Primary Care Prov ider Allergies Active Allergy Reactions Criticality Noted Date Comments Diclofenac Sodium Unknown 03/27/2024 Patient reports she cannot take it orally due to medication reaction Medications albuterol 90 mcg/actuation inhaler Inhale 2 puffs into the lungs every 6 (six) hours as needed for wheezing. Active amantadine HCl (SYMMETREL) 100 mg capsule Take 100 mg by mouth 2 (two) times a day. Active carbidopa-levod opa (SINEMET CR) 25-100 mg per CR tablet Take 1 tablet by mouth 2 (two) times a day. Active entacapone (COMTAN) 200 mg tablet Take 200 mg by mouth 3 (three) times a day. Active ferrous sulfate 325 mg (65 mg [place] iron) tablet Take 325 mg by mouth daily with breakfast. Active levothyroxine (SYNTHROID, LEVOTHROID) 112 MCG tablet Take 112 mcg by mouth every morning. Active meloxicam (MOBIC) 7.5 MG tablet Take 7.5 mg by mouth daily. Active mometasone (NASONEX) 50 mcg/actuation nasal spray 2 sprays by Nasal route daily. Active omeprazole (PRILOSEC) 20 MG capsule Take 20 mg by mouth daily. Active opicapone (ONGENTYS) 50 mg capsule Take 50 mg by mouth nightly at bedtime. Active primidone (MYSOLINE) 50 MG tablet Take 50 mg by mouth 4 (four) times a day. Active rOPINIRole (REQUIP) 1 MG tablet Take 1 mg by mouth. Active traMADoL (ULTRAM) 50 mg tablet Take 50 mg by mouth every 6 (six) hours as needed for pain (specific location in comments). Active triamcinolone acetonide 0.025 % cream Apply 1 Application topically 2 (two) times a day. Active Social History Tobacco Use Types Packs/Day Years Used Date Smoking Tobacco: Never Assessed Education Answer Date Recorded Are you interested in more education? Not on jumana e 03/27/2024 Are you concerned about learning? Not on file 03/27/2024 No 03/27/2024 No 03/27/2024 Digital Access Answer Date Recorded No 03/27/2024 No 03/27/2024 Reliable internet access at home? Not on file 03/27/2024 Device with a working camera? Not on file Intimate Partner Violence Answer Date R ecorded Are you denied basic needs s uch as food, clothing, or medical care? No 03/27/2024 In the past 12 months have y ou been in a relationship with a person who hurts, threatens, or tries to control you? No 03/27/2024 Are you denied basic needs s uch as food, clothing, or medical care? No 03/27/2024 In the past 12 months have y ou been in a relationship with a person who hurts, threatens, or tries to control you? No 03/27/2024 Comments Unknown Sex and Gender Information Value Date Recorded Sex Assigned at Not on file Legal Sex Female 3:01 PM EDT Gender Identity Not on file Sexual Orientation Not on file Last Filed Vital Signs Vital Sign Reading Time Taken Comments Blood Pressure 164/74 03/27/2024 5:33 PM EDT Pulse 74 03/27/2024 5:33 PM EDT Temperature 36.3 C (97.4 F) 03/27/2024 5:33 PM EDT Respiratory Rate 20 03/27/2024 5:33 PM EDT Oxygen Saturation 97% 03/27/2024 5:33 PM EDT Inhaled Oxygen Concentration - - Weight 81.6 kg (180 lb) 03/27/2024 3:20 PM EDT Height 167.6 cm (5' 6 ) 03/27/2024 3:20 PM EDT Body Mass Index 29.05 03/27/2024 3:20 PM EDT Plan of Treatment Health Maintenance Due Date Last Done Comments Adult Td,Tdap Booster 1945 TSH LEVEL 1945 DEPRESSION SCREENING 1958 SMOKING Hx and SMOKELESS TOB ACCO SCREENING 08/25/1959 HEPATITIS C SCREENING 1964 PNEUMOCOCCAL VACCINES (50+ y ears) (1 of 1 - PCV) 1996 ZOSTER VACCINES (1 of 2) 1996 OSTEOPOROSIS SCREENING INITI AL (ONE-TIME) 08/25/2011 RSV VACCINE (1 - 1-dose 75+ series) 2021 COVID-19 VACCINE ( - 2023-2 5 season) 2024 LIPID PANEL 07/11/2028 07/11/2023 HEPATITIS A VACCINES Aged Out No long er eligible based on patient's age to complete this topic HIB VACCINES Aged Out No longer eligi ble based on patient's age to complete this topic MENINGOCOCCAL VACCINES (ACWY) Aged Out No longer eligible based on patient's age to complete this topic MENINGOCOCCAL VACCINES (B) Aged Out N o longer eligible based on patient's age to complete this topic Medical Devices Not on file Insurance [employer] Care Teams Recovery Collector Relationship Specialty Start Date End Date Nathaly Correa MD [address] [place] [address] [phone] PCP - General Internal Medicine 03/27/24 Additional Source Comments The information contained in this document represents components of the legal health record. It is not the complete legal health record.[facility]
--- OUTSIDE RECORDS SUMMARY | 2025-01-27 14:15 | XMS_ITS ---
Author Name [facility] Organization Unknown Care Team Organization Name Specialty Phone Email Start Date End Da te [facility] ACO 01/26/2025 [facility] Nathaly Correa Primary Care 08/14/2022 01/26/2024 [facility] Garima Hartley Primary Care 04/16/2022
--- NOTE | 2025-01-27 14:28 | A.OFFVIS_ITS ---
Intake Visit Reasons: Weakness Allergies atropine (From ) Allergy (Unknown, Verified 01/25/25 08:36) Unknown celecoxib (From Celebrex) Allergy (Unknown, Verified 01/25/25 08:36) Unknown diclofenac (From Voltaren) Allergy (Unknown, Verified 01/25/25 08:36) Unknown hyoscyamine (From ) Allergy (Unknown, Verified 01/25/25 08:36) Unknown naproxen Allergy (Unknown, Verified 01/25/25 08:36) Unknown phenobarbital (From ) Allergy (Unknown, Verified 01/25/25 08:36) Unknown quinine Allergy (Unknown, Verified 01/25/25 08:36) Unknown scopolamine (From ) Allergy (Unknown, Verified 01/25/25 08:36) Unknown Medication List - Last Reconciled 01/27/25 by Echo Zambrano MD carbidopa-levodopa 25-100 mg (Sinemet) 2 tabs PO QID 90 days carbidopa-levodopa 36.25-145 mg ER (Rytary) 1 cap PO TID cholestyramine (with sugar) 4 gram 1 ea PO TID levetiracetam 500 mg PO BID 90 days levothyroxine 112 mcg PO DAILY omeprazole 20 mg PO DAILY primidone 100 mg PO BEDTIME rasagiline 0.5 mg PO DAILY 90 days HPI Comments Details: 79 years old woman with Parkinson's disease that started around 2018 with the right hand shaking and difficulty walking. She also has significant osteoarthritis compounding her difficulty for balance and walking and resulting in multifactorial gait disorder. In 2024, she was admitted at [facility] with an episode of loss of consciousness and reported that she had been having episodes of seeing tunnel vision and then collapsing. Her MRI of brain had revealed mild microvascular ischemic disease an EEG at [facility] in 2024 revealed bitemporal sharps. She is presenting with mobility issues and management of Parkinson's Disease. She reports considerable difficulty with leg movement, increasing the risk of falls. She nearly fell while attempting to keep her head from hitting a counter, illustrating the severity of her mobility issues. Her condition requires consideration of a wheelchair due to the lack of leg response. She is prescribed Carbidopa/Levodopa but reports worsening vision when not taken consistently. She experiences improvement with the medication but faces challenges maintaining dosing schedule. The patient also manages hypothyroidism with Levothyroxine and uses Rasagiline in conjunction with her Parkinson's medications. [facility] Medical History (Updated 01/25/25 @ 08:35 by Shubham Villegas [facility]) Osteoarthritis Encephalopathy Multifactorial gait disorder Seizure disorder Review of Systems Const Details: - Neurological: Reports frequent freezing episodes and difficulty in leg movements. Denies seizures. - Vision: Reports vision blurring if medication schedule is delayed. - Musculoskeletal: Reports needing potential use of a wheelchair due to mobility issues. - Medication: Medication review includes Carbidopa/Levodopa, Rasagiline, and Levothyroxine. Physical Exam Neuro Other: She is alert and awake with normal spontaneity of speech fluency comprehension and somewhat flat affect. Main issue was that she has significant difficulty walking. He was walking in his small steps slow paced gait frequently freezing using a walker. Assessment & Plan Assessment & Plan (1) Parkinson disease: Comment: CT brain WO at [facility] in Aug 2024: [place] 48 hr EEG at [facility] in October 2024: Diana galarzas CT brain WO at [facility] in Jul 2024: [place] EEG at off in Apr 2024: WNL CT brain WO at [facility] in Apr 2023: Minimal atrophy MRI brain WO at [facility] in Apr 2023: Mild MVD Code(s): G20.A1 - Parkinson's disease without dyskinesia, without mention of fluctuations Category: Medical Qualifiers: Dyskinesia presence: without dyskinesia Fluctuating manifestations: with fluctuating manifestations Qualified Code(s): G20.A2 - Parkinson's disease without dyskinesia, with fluctuations (2) Multifactorial gait disorder: Code(s): R26.89 - Other abnormalities of gait and mobility Category: Medical (3) Osteoarthritis: Code(s): M19.90 - Unspecified osteoarthritis, unspecified site Category: Medical Qualifiers: Osteoarthritis location: unspecified site Osteoarthritis type: other Qualified Code(s): M19.90 - Unspecified osteoarthritis, unspecified site (4) Seizure disorder: Code(s): G40.909 - Epilepsy, unspecified, not intractable, without status epilepticus Category: Medical Plan Impression: a: Parkinson disease with significant freezing and lack of response to regular carbidopa/levodopa b: Seizure do Rec: a: Will try Rytary instead of regular levodopa b: Continue Rasagaline .5 daily c: Levetircetam 500mg bid Medications: New carbidopa-levodopa 36.25-145 mg ER (Rytary) divide evenly over waking hours 1 cap PO TID 270 caps 0RF Coding Level of Care Code Est Pt Level 4 (40759) Diagnoses Parkinson's disease without dyskinesia, with fluctuating manifestations G20.A2 Dyskinesia presence: without dyskinesia Fluctuating manifestations: with fluctuating manifestations Multifactorial gait disorder R26.89 Other type of osteoarthritis, unspecified site M19.90 Osteoarthritis location: unspecified site Osteoarthritis type: other Seizure disorder G40.909
== END 2025-01-27 14:45 | disposition home or self-care (01) ==
LOC: HO.HSM 14:06
PROVIDERS: PCP Internal Medicine; Visit Provider Psychiatry & Neurology Neurology
DX: G20.A2 Parkinson's disease without dyskinesia, with fluctuations (principal); R26.89 Other abnormalities of gait and mobility; M19.90 Unspecified osteoarthritis, unspecified site; G40.909 Epilepsy, unspecified, not intractable, without status epilepticus
CPT/HCPCS: 99214

== ENCOUNTER → 2025-01-27 14:05 | Outpatient (BNVA) | payer MEDICARE, SELFPAY | PROVIDERS: PCP Internal Medicine; Visit Provider Psychiatry & Neurology Neurology | DX: G20.A2 Parkinson's disease without dyskinesia, with fluctuations (principal); R26.89 Other abnormalities of gait and mobility; M19.90 Unspecified osteoarthritis, unspecified site | CPT/HCPCS: 99212 ==

== ENCOUNTER 2025-03-24 11:02 | Outpatient (AMB) | payer MEDICARE, SELFPAY ==
--- NOTE | 2025-03-24 11:12 | A.OFFVIS_ITS ---
Intake Visit Reasons: 3m PD/SZ Allergies atropine (From ) Allergy (Unknown, Verified 01/25/25 08:36) Unknown celecoxib (From Celebrex) Allergy (Unknown, Verified 01/25/25 08:36) Unknown diclofenac (From Voltaren) Allergy (Unknown, Verified 01/25/25 08:36) Unknown hyoscyamine (From ) Allergy (Unknown, Verified 01/25/25 08:36) Unknown naproxen Allergy (Unknown, Verified 01/25/25 08:36) Unknown phenobarbital (From ) Allergy (Unknown, Verified 01/25/25 08:36) Unknown quinine Allergy (Unknown, Verified 01/25/25 08:36) Unknown scopolamine (From ) Allergy (Unknown, Verified 01/25/25 08:36) Unknown Medication List - Last Reconciled 03/24/25 by Echo Zambrano MD carbidopa-levodopa 25-100 mg (Sinemet) 2 tabs PO QID 90 days carbidopa-levodopa 36.25-145 mg ER (Rytary) 1 cap PO TID cholestyramine (with sugar) 4 gram 1 ea PO TID levetiracetam 500 mg PO BID levothyroxine 112 mcg PO DAILY omeprazole 20 mg PO DAILY primidone 100 mg PO BEDTIME rasagiline 0.5 mg PO DAILY 90 days HPI Comments Details: 79 years old woman with Parkinson's disease that started around 2018 with the right hand shaking and difficulty walking. She also has significant osteoarthritis compounding her difficulty for balance and walking and resulting in multifactorial gait disorder. In 2024, she was admitted at [facility] with an episode of loss of consciousness and reported that she had been having episodes of seeing tunnel vision and then collapsing. Her MRI of brain had revealed mild microvascular ischemic disease an EEG at [facility] in 2024 revealed bitemporal sharps. She is presenting with mobility issues related to Parkinson's Disease. She describes difficulty in walking that has worsened, correlating with medication changes, specifically, the introduction of Rytary. As a result, she has experienced two falls in the past week, although she did not sustain injuries. The patient expresses concern about episodes where her legs become nonresponsive, impacting her ability to walk even short distances. Historical treatment includes Rytary and Rosagiline, amongst others. The patient also reports longstanding issues with urinary and fecal incontinence and a history of peptic ulcer disease post-gastric bypass managed with Omeprazole. The patient outlines her struggles with mobility and wishes to transition from a rollator to a wheelchair for ease of movement, particularly considering her professional duties and daily living tasks. [facility] Medical History (Updated 01/25/25 @ 08:35 by Shubham Villegas [facility]) Osteoarthritis Encephalopathy Multifactorial gait disorder Seizure disorder Review of Systems Const Details: - Neurological: Reports worsening mobility, unsteady gait, occasional leg immobility. - Gastrointestinal: Reports peptic ulcer disease, managed post-gastric bypass; Denies additional symptoms. - Urological: Reports urinary incontinence. - Other: Reports fecal incontinence. Physical Exam Neuro Other: Mental Status: Alert and oriented to person, place, and time. Normal attention. Normal spontaneous speech, fluency, and comprehension. No obvious issues with mood and memory. Affect is appropriate. Cranial Nerves: CN II: Visual peterson full to confrontation, visual acuity intact. CN III, IV, : Pupils equal, round, reactive to light and accommodation. Extraocular movements are normal. CN V: Facial sensation is normal. CN VII: Facial movements symmetrical. CN VIII: Hearing intact to bedside conversation is normal. CN IX, X: Palate elevates symmetrically. CN XI: Shoulder shrug and head turn symmetrical. CN XII: Tongue midline without atrophy or fasciculations. In wheel chair. Extrapyramidal: Full facial expressions and blinking. No rigidity. Movements are appropriate with no tremor or abnormality. Speech: Normal; no dysarthria or tremor. Assessment & Plan Assessment & Plan (1) Parkinson disease: Comment: CT brain WO at [facility] in Aug 2024: [place] 48 hr EEG at [facility] in October 2024: Bitemp sharps CT brain WO at [facility] in Jul 2024: [place] EEG at off in Apr 2024: WNL CT brain WO at [facility] in Apr 2023: Minimal atrophy MRI brain WO at [facility] in Apr 2023: Mild MVD Code(s): G20.A1 - Parkinson's disease without dyskinesia, without mention of fluctuations Category: Medical Qualifiers: Dyskinesia presence: without dyskinesia Fluctuating manifestations: with fluctuating manifestations Qualified Code(s): G20.A2 - Parkinson's disease without dyskinesia, with fluctuations (2) Seizure disorder: Code(s): G40.909 - Epilepsy, unspecified, not intractable, without status epilepticus Category: Medical (3) Multifactorial gait disorder: Code(s): R26.89 - Other abnormalities of gait and mobility Category: Medical Plan Impression: a: Parkinson disease with significant freezing and lack of response to regular carbidopa/levodopa b: Seizure do Rec: a: Will try Rytary instead of regular levodopa b: Continue Rasagaline .5 daily c: Levetircetam 500mg bid We discussed the management of the patient's Parkinson's Disease symptoms, specifically the continued use of Rytary in three daily doses. Although improvement in Parkinsonian symptoms has been noted, careful management of fall risks remains essential. The patient expressed the need for an insurance- approved wheelchair to enhance mobility, which I support, submitting the necessary documentation for this purpose. Discussion on maintaining her current regimen with Rosagiline and Electroacetam was engaged, with reiteration on the importance of adhering to Peptic Ulcer Disease management using daily Omeprazole. The patient?s challenging mobility, concurrent urinary and fecal incontinence, were reviewed but remain managed under existing protocols. We concluded on the need to pursue detailed assessment if further issues on incontinence pertain. Coding Level of Care Code Est Pt Level 4 (23832) Diagnoses Parkinson's disease without dyskinesia, with fluctuating manifestations G20.A2 Dyskinesia presence: without dyskinesia Fluctuating manifestations: with fluctuating manifestations Seizure disorder G40.909 Multifactorial gait disorder R26.89
--- OUTSIDE RECORDS SUMMARY | 2025-03-24 14:02 | XMS_ITS | Clinical Summary ---
Author Organization [facility] Address [address] [place] [phone] Phone Care Team Providers Care Magazine Writer Name Role Phone Nathaly Knapp MD Primary [...] Active ferrous sulfate 325 mg (65 mg [place] iron) tablet Take 325 mg by mouth [...] VACCINE (1 - 1-dose 75+ series) 2021 INFLUENZA VACCINE (#1) 2025 COVID-19 VACCINE (1 - 2024-2 6 season) 2025 LIPID PANEL 07/11/2028 07/11/2023 HEPATITIS A VACCINES [...] [employer] PREF[employer]ED [employer] REPLACEMENT Care Teams Magazine Writer Relationship Specialty Start Date End Date Nathaly Knapp MD [address] [place] [phone] PCP - General Internal Medicine 03/27/24 Additional Source Comments The information contained in this document represents components of the legal health record. It is not the complete legal health record.[facility]
--- OUTSIDE RECORDS SUMMARY | 2025-03-24 14:02 | XMS_ITS | Clinical Summary ---
Author Organization [address] [place] [address] [place] [phone] Phone Care Team Providers Care Director Of Events Name Role Phone Nathaly Knapp MD Primary Care Prov ider Allergies Active Allergy Reactions Criticality Noted Date Comments Celecoxib 08/31/2008 Diclofenac 08/31/2008 Pill Voltaren. Okay with the gel. Latex Swelling 11/07/2021 Naproxen 08/31/2008 Oxymetazoline 06/11/2012 Kgxyhwqlo-Arzdqk-Wwerqtiw-Sc o p 08/31/2008 Quinine Hcl 11/19/2011 Sulfamethoxazole-Trimethoprim [...] 1 (one) time each day. 9 Active omeprazole (PriLOSEC) [address] capsule [...] MUSCLE SPASMS FOR 5 DAYS 5 Active Rytary 36.25-145 mg per XR capsule TAKE ONE CAPSULE BY MOUTH THREE TIMES A DAY - DIVIDE EVENLY OVER WAKING HOURS 5 Active Active Problems Problem Noted Date Diagnosed Date History of COVID-19 02/20/2022 Iron deficiency anemia 07/27/2021 Osteoporosis 07/20/2021 Rheumatic fever 06/03/2019 Overview (07/31/2023): In childhood GERD (gastroesophageal reflux disease) 9 Overview (07/31/2023): Dr. Quiroz Night blindness 06/03/2019 RAD (reactive airway disease) 06/03/2019 Parkinson disease ([facility] V24, [facility] V28) Overview (07/31/2023): Diagnosed 2018 Follows [...] 03/05/2018 Tremor 02/24/2018 Diverticulosis 12/29/2017 Aortic atherosclerosis ([facility] V24) 12/17/2017 Overview (07/31/2023): Comments: CXR 06/18/11 [...] Encounters Date Type Department Care Team Description 02/09/2025 8:00 AM EDT Office Visit Adult Medicine [id number] [place] [phone] Maribel Roberts PA Hypothyroidism, unspecified type (Primary Dx); Iron deficiency anemia, unspecified iron deficiency anemia type; Parkinson's disease without dyskinesia, with fluctuating manifestations ([facility] V24, [facility] V28); Subacute frontal sinusitis 02/09/2025 Telephone Adult Medicine [address] [phone] Maribel Roberts PA from Last 3 Months Immunizations Immunization Administration Dates Next Due Influenza trivalent, 0.5mL [...] Surgery Date Site/Laterality Comments LAPAROSCOPIC GASTRIC BANDING [phone] PROCEDURE: LAP ADJUSTABLE GASTRIC BAND OTHER SURGICAL HISTORY 2010 PROCEDURE: NJ LAPS GSTR RSTCV PX W/BYP&SM INT RCNSTJ WRIST SURGERY PROCEDURE: HISTORICAL WRIST SURGERY OTHER SURGICAL HISTORY PROCEDURE: NJ OSTEOTOMY CALCANEUS W/WO INTERNAL FIXATION; COMMENT: removal of spurs with Dr. Ugalde TONSILLECTOMY 1957 PROCEDURE: HISTORICAL TONSILLECTOMY CHOLECYSTECTOMY 1984 PROCEDURE: HISTORICAL CHOLECYSTECTOMY APPENDECTOMY PROCEDURE: HISTORICAL APPENDECTOMY NASAL SEPTUM SURGERY PROCEDURE: NJ SEPTOPLASTY/SUBMUCOUS RESECJ W/WO CARTILAGE GRF; COMMENT: deviation correction for sinus infections SHOULDER SURGERY 12/08/2017 PROCEDURE: HISTORICAL SHOULDER SURGERY; COMMENT: Dr. 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 For example, director maternal child or elderly care for an older [...] Date Recorded What is your living situation? Unrecognized valu e 10/13/2024 Comments No Sex and Gender Information Value Date Recorded Sex Assigned at Female 08/27/2024 8:24 PM EDT Legal Sex Female 6:23 AM EST Gender Identity Female 08/27/2024 8:24 PM EDT Sexual Orientation Not on file Obstetrics History Last Filed Vital Signs Vital Sign Reading Time Taken Comments Blood Pressure 128/73 02/09/2025 8:05 AM EDT Pulse 74 02/09/2025 8:05 AM EDT Temperature 35.9 C (96.7 F) 02/09/2025 8:05 AM EDT Respiratory Rate 12 02/09/2025 8:05 AM EDT Oxygen Saturation 97% 02/09/2025 8:05 AM EDT Inhaled Oxygen Concentration - - Weight 68 kg (150 lb) 02/09/2025 8:05 AM EDT Height 157.5 cm (5' 2 ) 02/09/2025 8:05 AM EDT Body Mass Index 27.44 02/09/2025 8:05 AM EDT Plan of Treatment Upcoming Encounters Date Type Department Care Team (Late st Contact Info) Description 06/13/2025 11:00 AM EST Office Visit Adult Medicine [address] [phone] Nathaly Knapp MD [address] [place] [phone] 10/17/2025 9:00 AM EDT Office Visit Adult [address] [phone] Nathaly Knapp MD [address] [place] [phone] Health Maintenance Due Date Last Done Comments Zoster Vaccines (1 of 2) 1996 RSV Immunization Adult Patients (1 - 1-dose 75+ series) 2021 COVID-19 Vaccine ( season) 2025 06/17/2023, 03/03/2023, 10/21/2022, Additional history exists Osteoporosis Screening (Bone Density Screening) 07/01/2025 07/01/2023, 12/01/2020 Social Influencers of Health Screening 10/13/2025 10/13/2024 Falls Risk Assessment 10/14/2025 10/14/2024 , 10/14/2024, 09/02/2024, Additional history exists Medicare Annual Wellness Visit 10/14/2025 10/14/2024 Cholesterol Screening (Lipid Panel) 07/11/2028 07/11/2023, 07/11/2023 DTaP,Tdap,and Td Vaccines (4 - Td or Tdap) 10/23/2032 10/23/2022, 07/20/2021, 07/04/2009 Pneumococcal Vaccine: 50+ Years Completed 06/07/2015, 09/01/2012 [...] to do OT STG 4-6 visits General Abhijit Patel, OT Note: Patient will report <=3/10 pain [...] WFL for cooking, Patient will demo R milled lumber grader strength >= 20# to be able to hold a pot for cooking, Patient will demo improved functional use of R upper extremity as evidenced by Quick Dash score <= 45 to be able to use a mar register, and Patient will perform HEP MOD I Procedures Procedure Name Priority Date/Time Associated Diagnosis Comments LIPID PANEL Routine 07/11/2023 DXA BONE DENSITY STUDY 1+ SITS AXIAL SKEL Routine 07/01/2023 11:41 AM EST Asymptomatic menopausal state HEPATITIS C SCREENING Routine 01/11/2021 from Last 3 Months or Most Recently Relevant to Health Maintenance Results * (ABNORMAL) Lipid panel (07/11/2023) LDL/HDL Ratio 2 0 - 4 Triglycerides 91 0 - 150 mg/dL Cholesterol 209(A) 0 - 200 mg/dL HDL 124 >=40 mg/dL LDL Cholesterol 67 0 - 100 mg/dL Blood Venous blood specimen / Unknown [facility] Provider LAB BLOOD ORDERABLES Marisol l Result [...] IMPRESSION: IMPRESSION: Osteoporosis by WHO criteria. The [facility] Department of Internal Medicine recommends using National [...] alternative screening schedule based on alec Chavarria., [facility] June 27, 2011 for patients with osteopenia [...] IMPRESSION: IMPRESSION: Osteoporosis by WHO criteria. The [facility] Department of Internal Medicine recommendsusing National Osteoporosis [...] alternative screening schedule based on alec Chavarria., NEJMJanuary 2011 for patients with osteopenia (based on hip BMD T-score) is as follows: * advanced osteopenia (T scores -2.00 to -2.49), BMD testing every year * moderate osteopenia (T scores -1.50 to -1.99), BMD testing every 5years mild osteopenia or normal BMD (T scores -1.50 and higher), BMD testingevery 15 years Maribel GARCIA DXA PROCEDURES Final Result * Hepatitis C Screening (01/11/2021) Pathologist [facility] Hepatitis C Screening Abstracted Historical Provider HEALTH [...] currently active code status orders. Care Teams Director Of Events Relationship Specialty Start Date End Date Nathaly Knapp MD [address] [place] [phone] PCP - General Internal Medicine 01/07/22
== END 2025-03-24 11:28 | disposition home or self-care (01) ==
LOC: HO.HSM 11:02
PROVIDERS: PCP Internal Medicine; Visit Provider Psychiatry & Neurology Neurology
DX: G20.A2 Parkinson's disease without dyskinesia, with fluctuations (principal); G40.909 Epilepsy, unspecified, not intractable, without status epilepticus; R26.89 Other abnormalities of gait and mobility
CPT/HCPCS: 99214

== ENCOUNTER → 2025-03-24 11:02 | Outpatient (BNVA) | payer MEDICARE, SELFPAY | PROVIDERS: PCP Internal Medicine; Visit Provider Psychiatry & Neurology Neurology | DX: G20.A2 Parkinson's disease without dyskinesia, with fluctuations (principal); G40.909 Epilepsy, unspecified, not intractable, without status epilepticus; R26.89 Other abnormalities of gait and mobility | CPT/HCPCS: 99212 ==

== ENCOUNTER 2025-05-26 15:46 | Outpatient (AMB) | payer MEDICARE, SELFPAY ==
--- NOTE | 2025-05-26 15:47 | A.OFFVIS_ITS ---
Intake Visit Reasons: Sooner appt, symptoms , falls Allergies atropine (From ) Allergy (Unknown, Verified 01/25/25 08:36) Unknown celecoxib (From Celebrex) Allergy (Unknown, Verified 01/25/25 08:36) Unknown diclofenac (From Voltaren) Allergy (Unknown, Verified 01/25/25 08:36) Unknown hyoscyamine (From ) Allergy (Unknown, Verified 01/25/25 08:36) Unknown naproxen Allergy (Unknown, Verified 01/25/25 08:36) Unknown phenobarbital (From ) Allergy (Unknown, Verified 01/25/25 08:36) Unknown quinine Allergy (Unknown, Verified 01/25/25 08:36) Unknown scopolamine (From ) Allergy (Unknown, Verified 01/25/25 08:36) Unknown HPI Comments Details: 79 years old woman with Parkinson's disease that started around 2018 with the right hand shaking and difficulty walking. She also has significant osteoarthritis compounding her difficulty for balance and walking and resulting in multifactorial gait disorder. In 2024, she was admitted at [facility] with an episode of loss of consciousness and reported that she had been having episodes of seeing tunnel vision and then collapsing. Her MRI of brain had revealed mild microvascular ischemic disease an EEG at [facility] in 2024 revealed bitemporal sharps. She is presenting with recurrent falls and severe leg shakiness. Her symptoms worsened last Friday morning when she experienced severe leg shakiness, making it difficult to walk. This led to a fall where she struck her left knee and elbow on a cement floor, though she did not hit her head. Her sister provided stability to help her mobilize afterward. She experienced subsequent falls, including one on Friday night where she again landed on her left knee and shoulder, and two more falls on Friday inside her house. The falls at home were on a rug, with one landing on her back. The patient reports that before a fall, her leg begins to shake severely and then gives out. During these episodes of severe shaking, she is unable to widen her stance to improve balance and resorts to shuffling instead of walking. She uses a cane and a rollator at home and finds herself reaching for anchored objects for support. Her current Parkinson's medication regimen includes Rytary three times a day and supplemental carbidopa/levodopa 25/100 mg two to three times a day as needed. She notes that symptoms persist even 3-4 hours after taking her medication. Her other medications include levothyroxine for hypothyroidism, omeprazole and Keppra, for which the dose was recently increased from 250 mg to 500 mg. The patient reports waking up around 3:30 AM to be at work by 6:00 AM, and she typically goes to bed between 7:00 and 8:00 PM. She has urinary incontinence that sometimes wakes her at night. [facility] Medical History (Updated 01/25/25 @ 08:35 by Shubham Villegas [facility]) Osteoarthritis Encephalopathy Multifactorial gait disorder Seizure disorder Review of Systems Narrative - Neurological: Reports recurrent falls and severe leg shakiness, particularly preceding falls. Reports gait instability with shuffling. Denies head injury with falls. - Musculoskeletal: Reports left knee and left elbow injury from a fall on cement. Reports soreness after falls. - Genitourinary: Reports urinary incontinence, which awakens her from sleep. - Constitutional: Reports falling asleep quickly. Physical Exam Neuro Other: Mental Status: Alert and oriented to person, place, and time. Normal attention. Normal spontaneous speech, fluency, and comprehension. Cranial Nerves: CN II: Visual peterson full to confrontation, visual acuity intact. CN III, IV, : Pupils equal, round, reactive to light and accommodation. Extraocular movements are normal. CN V: Facial sensation is normal. CN VII: Facial movements symmetrical. CN VIII: Hearing intact to bedside conversation is normal. CN IX, X: Palate elevates symmetrically. CN XI: Shoulder shrug and head turn symmetrical. CN XII: Tongue midline without atrophy or fasciculations. Extrapyramidal: Decreased facial expression blinking. Moderate generalized bradykinesia. She is in a wheelchair. Speech: Normal; no dysarthria or tremor. Assessment & Plan Assessment & Plan (1) Parkinson disease: Comment: CT brain WO at [facility] in Aug 2024: [place] 48 hr EEG at [facility] in October 2024: Diana angulo CT brain WO at [facility] in Jul 2024: [place] EEG at off in Apr 2024: WNL CT brain WO at [facility] in Apr 2023: Minimal atrophy MRI brain WO at [facility] in Apr 2023: Mild MVD Code(s): G20.A1 - Parkinson's disease without dyskinesia, without mention of fluctuations Category: Medical Qualifiers: Dyskinesia presence: without dyskinesia Fluctuating manifestations: with fluctuating manifestations Qualified Code(s): G20.A2 - Parkinson's disease without dyskinesia, with fluctuations (2) Seizure disorder: Code(s): G40.909 - Epilepsy, unspecified, not intractable, without status epilepticus Category: Medical Plan Impression: a: Parkinson disease with significant freezing and lack of full response to carbidopa/levodopa b: Seizure do Rec: a: Rytary 36/145 tid b: May take carbidopa/levodopa 25/100, one tid in addition to Rytary c: Increase Rasagaline to 1mg at night daily d: Entacapone 200mg one tid e: Levetircetam 500mg bid I discussed the new, comprehensive medication plan with the patient to address her worsening motor symptoms and falls. I provided a written schedule outlining the new timings and dosages for Rytary, the addition of entacapone and amantadine, and the increased dose of rasagiline, emphasizing that they are to be taken together. We also confirmed the continuation of her other medications, including Keppra, levothyroxine, and omeprazole, and their appropriate timing. I instructed the patient to report on her progress with the new regimen and confirmed she has a follow-up appointment scheduled in couple of months. Medications: New entacapone administer at the same time as l-dopa/carbidopa dose 200 mg PO TID 270 tabs 0RF amantadine HCl 100 mg PO BID 180 tabs 0RF rasagiline 1 mg PO DAILY 90 tabs 0RF Discontinued rasagiline Discontinued Reason: Doctor's Order 0.5 mg PO DAILY 90 days 90 tabs 0RF Coding Level of Care Code Est Pt Level 4 (10951) Diagnoses Parkinson's disease without dyskinesia, with fluctuating manifestations G20.A2 Dyskinesia presence: without dyskinesia Fluctuating manifestations: with fluctuating manifestations Seizure disorder G40.909
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
--- OUTSIDE RECORDS SUMMARY | 2025-05-26 19:30 | XMS_ITS | Clinical Summary ---
Author Organization [address] [place] [address] [place] [phone] Phone Care Team Providers Care Computer Aide Name Role Phone Nathaly Knapp MD Primary Care Prov ider Allergies Active Allergy Reactions Criticality Noted Date Comments Celecoxib 08/31/2008 Diclofenac 08/31/2008 Pill Voltaren. Okay with the gel. Latex Swelling 11/07/2021 Naproxen 08/31/2008 Oxymetazoline 06/11/2012 Sbyhegvzh-Okvxme-Kinowkjv-Sc o p 08/31/2008 Quinine Hcl 11/19/2011 Sulfamethoxazole-Trimethoprim [...] 30 MINUTES BEFORE MEAL 2 Active calcium carbonate-bel calciferol 500 mg-10 mcg (400 unit) per tablet Take 500 mg by mouth 2 (two) times a day. 9 Active Lactobacillus acidophilus (PROBIOTIC ACIDOPHILUS ORAL) Take 1 capsule by mouth 1 (one) time each day. 9 Active cyanocobalamin (VITAMIN B-12) 250 mcg tablet Take 1 tablet (250 mcg total) by mouth 1 (one) time each day. Active ferrous sulfate 325 mg (65 mg elemental iron) tablet Take 1 tablet (325 mg total) by mouth 1 (one) time each day. 90 each 3 5 026 Active cholestyramine (QUESTRAN) 4 gram packetIndicatio ns:Diverticulos is DISSOLVE AND TAKE ONE PACKET BY MOUTH THREE TIMES A DAY WITH MEALS 90 packet 11 5 Active rasagiline (AZILECT) 0.5 mg tablet Take 1 tablet (0.5 mg total) by mouth 1 (one) time each day. Active levothyroxine (SYNTHROID, LEVOTHROID) 112 mcg tablet TAKE ONE TABLET BY MOUTH EVERY DAY 90 tablet 2 5 Active Rytary 36.25-145 mg per XR capsule TAKE ONE CAPSULE BY MOUTH THREE TIMES A DAY - DIVIDE EVENLY OVER WAKING HOURS 5 Active omeprazole (PriLOSEC) [address] capsule Take 1 capsule (20 mg total) by mouth 1 (one) time each day. 90 capsule 3 4 025 levETIRAcetam (KEPPRA) 250 mg tablet Take 1 tablet (250 mg total) by mouth 2 (two) times a day. 5 025 Discontinu ed(Formula ry change) tiZANidine (ZANAFLEX) 2 mg tablet TAKE ONE TABLET BY MOUTH EVERY 8 HOURS NEEDED FOR MUSCLE SPASMS FOR 5 DAYS 5 025 Discontinu ed(Discont inued by another clinician) Active Problems Problem Noted Date Diagnosed Date Syncope and collapse 05/09/2025 Assessment & Plan (05/09/2025 2:39 PM EST): Orders: ECG 12 lead Falls 05/09/2025 Assessment & Plan (05/09/2025 2:39 PM EST): Most of the falls are due to unsteady gait. Her gait is very unsteady in my office and she was not able to move after try for 10 to 15 seconds. With attempted walking, she is shuffling and very unsteady. The fall leading her to [facility] could be caused by syncope. She remember to be dizzy. She has a quite severe Parkinson disease and will have a tendency to have orthostatic pressure drop. She has been drinking significant amount of caffeinated beverage and has significant lower extremity edema from probably venous stasis. I suggest her to reduce or eliminate caffeinated beverage and use compressive stocking probably lower pressure but up to thigh or whole leg to help with her venous stasis. She is also suggest to drink adequate water. She should avoid standing longer time without moving the leg. History of COVID-19 02/20/2022 Iron deficiency anemia 07/27/2021 Osteoporosis 07/20/2021 Rheumatic fever 06/03/2019 Overview (07/31/2023): In childhood GERD (gastroesophageal reflux disease) 9 Overview (07/31/2023): Dr. Quiroz Night blindness 06/03/2019 RAD (reactive airway disease) 06/03/2019 Parkinson disease 12/23/2018 Overview (07/31/2023): Diagnosed [address] [...] 03/05/2018 Tremor 02/24/2018 Diverticulosis 12/29/2017 Aortic atherosclerosis 12/17/2017 Overview (07/31/2023): Comments: CXR 06/18/11 calcification [...] Encounters Date Type Department Care Team Description 05/26/2025 Telephone Adult Medicine [address] [phone] Nathaly Sr MD 05/26/2025 Telephone Adult Medicine [address] [phone] Nathaly Sr MD 05/26/2025 Telephone Adult Medicine [address] [phone] Nathaly Sr MD 05/12/2025 2:15 PM EST Treatment [address] [phone] [facility] Zaldivar, PT Parkinson's disease without dyskinesia, with fluctuating manifestations (CMS/HCC V24, CMS/HCC V28); Recurrent falls 05/09/2025 1:00 PM EST Office Visit [facility] [address] [place] [address] Candelaria Gamboa MD Syncope and collapse (Primary Dx); Falls 04/14/2025 Telephone [facility] [address] [place] [address] Florentin crenshaw, Nathaly Carrillo MD from Last 3 Months Immunizations Immunization Administration [...] Surgery Date Site/Laterality Comments LAPAROSCOPIC GASTRIC BANDING [phone] PROCEDURE: LAP ADJUSTABLE GASTRIC BAND OTHER SURGICAL HISTORY 2010 PROCEDURE: MD LAPS GSTR RSTCV PX W/BYP&SM INT RCNSTJ WRIST SURGERY PROCEDURE: HISTORICAL WRIST SURGERY OTHER SURGICAL HISTORY PROCEDURE: MD OSTEOTOMY CALCANEUS W/WO INTERNAL FIXATION; COMMENT: removal of spurs with Dr. Ugalde TONSILLECTOMY 1957 PROCEDURE: HISTORICAL TONSILLECTOMY CHOLECYSTECTOMY 1984 PROCEDURE: HISTORICAL CHOLECYSTECTOMY APPENDECTOMY PROCEDURE: HISTORICAL APPENDECTOMY NASAL SEPTUM SURGERY PROCEDURE: MD SEPTOPLASTY/SUBMUCOUS RESECJ W/WO CARTILAGE GRF; COMMENT: deviation correction for sinus infections SHOULDER SURGERY 12/08/2017 PROCEDURE: HISTORICAL SHOULDER SURGERY; COMMENT: Dr. Jones, shaved clavicle CATARACT EXTRACTION 2017 Bilateral PROCEDURE: HISTORICAL CATARACT REMOVAL Medical History Medical History Date Comments Chronic wrist pain, left 06/27/2020 DX:Hospital Monitor jose wrist pain, left; COMMENT: Hx of surgery, symptomatic RX per Dr Alejandro 01/2020, unless worsening History of COVID-19 02/20/2022 DX:History o f COVID-19 Thyroid activity decreased Parkinson's disease (CMS/[facility] V24, CMS/[facility] V28) Family History Medical History Relation Name [...] Record ed Within the last 3 months, júnior martinez many times did you visit the emergency [...] care for your loved ones. For example, childcare provider or elderly care for an older adult? [...] PM EDT Sexual Orientation Not on file Last Filed Vital Signs Vital Sign Reading Time Taken Comments Blood Pressure 132/70 05/09/2025 1:05 PM EST Pulse 75 05/09/2025 1:05 PM EST Temperature 35.9 C (96.7 F) 02/09/2025 8:05 AM EDT Respiratory Rate 02/09/2025 8:05 AM EDT Oxygen Saturation 99% 05/09/2025 1:05 PM EST Inhaled Oxygen Concentration - - Weight 67.6 kg (149 lb) 05/09/2025 1:05 PM EST Height 157.5 cm (5' 2 ) 05/09/2025 1:05 PM EST Body Mass Index 27.25 05/09/2025 1:05 PM EST Plan of Treatment Upcoming Encounters Date Type Department Care Team (Late st Contact Info) Description 08/02/2025 12:30 PM EST Office Visit Adult Medicine [address] [phone] Nathaly Knapp MD [address] [place] [phone] 10/17/2025 9:00 AM EDT Office Visit [address] [phone] Nathaly Knapp MD [address] [place] [address] Health Maintenance Due Date Last Done Comments Zoster Vaccines (1 of 2) 1996 RSV Immunization Adult Patients (1 - 1-dose 75+ series) 2021 Osteoporosis Screening (Bone Density Screening) 07/01/2025 07/01/2023, 12/01/2020 COVID-19 Vaccine ( season) 2025 02/11/2025, 06/17/2023, 03/03/2023, Additional history exists Social Influencers of Health Screening 10/13/2025 10/13/2024 Falls Risk Assessment 10/14/2025 10/14/2024 , 10/14/2024, 09/02/2024, Additional history exists Medicare Annual Wellness Visit 10/14/2025 10/14/2024 Cholesterol Screening (Lipid Panel) 07/11/2028 07/11/2023, 07/11/2023 DTaP,Tdap,and Td Vaccines (4 - Td or Tdap) 10/23/2032 10/23/2022, 07/20/2021, 07/04/2009 Pneumococcal Vaccine: 50+ Years Completed 06/07/2015, 09/01/2012 Hepatitis C Screening Completed 01/11/2021 Depression Screening Completed 10/13/2024 Influenza Vaccine Discontinued 02/11/2025, , 05/22/2022, Additional history exists HIB Vaccines [...] I OT LTG 16 visits General Abhijit Patel OT Note: Patient will report <=2/10 pain in R hand, Patient will demo R hand AROM WFL for cooking, Patient will demo R gas stove servicer helper strength >= 20# to be able to hold a pot for cooking, Patient will demo improved functional use of R upper extremity as evidenced by Quick Dash score <= 45 to be able to use a mar register, and Patient will perform HEP MOD I Procedures Procedure Name Priority Date/Time Associated Diagnosis Comments ECG 12-LEAD Routine 05/09/2025 1:17 PM EST Syncope and collapse LIPID PANEL Routine 07/11/2023 DXA BONE DENSITY STUDY 1+ SITS AXIAL SKEL Routine 07/01/2023 11:41 AM EST Asymptomatic menopausal state HEPATITIS C SCREENING Routine 01/11/2021 from Last 3 Months or Most Recently Relevant to Health Maintenance Results * ECG 12 lead (05/09/2025 1:17 PM EST) Ventricular Rate ECG 75 BPM GEMUSE Atrial Rate 75 BPM GEMUSE P-R Interval 150 ms GEMUSE QRS Duration 88 ms GEMUSE Q-T Interval 386 ms GEMUSE QTc 431 ms GEMUSE P Wave [place] 74 degrees GEMUSE R [place] 29 degrees GEMUSE T [place] 68 degrees GEMUSE ECG Interpretation Normal sinus rhythm Normal ECG When compared with ECG of 27-AUG-2024 15:41, No significant change was found Confirmed by Caden GAMBOA YUFENG ([id number]) on 05/09/2025 1:29:18 PM GEMUSE 05/09/2025 1:17 PM EST 05/09/2025 1:29 PM EST Candelaria Gamboa MD ECG ORDERABLES Final Result GEMUSE * (ABNORMAL) Lipid panel (07/11/2023) LDL/HDL Ratio 2 0 - 4 Triglycerides 91 0 - 150 mg/dL Cholesterol 209(A) 0 - 200 mg/dL HDL 124 >=40 mg/dL LDL Cholesterol 67 0 - 100 mg/dL Blood Venous blood specimen / Unknown Benjamín Provider LAB BLOOD ORDERABLES Marisol l Result * DXA BONE DENSITY STUDY 1+ SITS AXIAL SKEL (07/01/2023 11:41 AM EST) Anatomical Region Laterality Modality Bone Densitometr y 02/11/2023 9:2 0 AM EDT Narrative 07/01/2023 7:06 PM EST [...] alternative screening schedule based on alec Chavarria., [facility] June 27, 2011 for patients with osteopenia [...] C Screening (01/11/2021) Hepatitis C Screening Abstracted us Historical Provider HEALTH MAINTENANCE Final Result from [...] currently active code status orders. Care Teams Computer Aide Relationship Specialty Start Date End Date Nathaly Knapp MD [address] [place] [phone] PCP - General Internal Medicine 01/07/22
--- OUTSIDE RECORDS SUMMARY | 2025-05-26 19:30 | XMS_ITS | Clinical Summary ---
Author Organization [facility] Address [address] [place] [phone] Phone Care Team Providers Care Diesel Retrofit Installer Name Role Phone Nathaly Knapp MD Primary [...] Active ferrous sulfate 325 mg (65 mg quileute iron) tablet Take 325 mg by mouth [...] [employer] Care Teams Diesel Retrofit Installer Relationship Specialty Start Date End Date Nathaly Knapp MD [address] [place] [phone] PCP - General Internal Medicine 03/27/24 Additional Source Comments The information contained in this document represents components of the legal health record. It is not the complete legal health record.[facility]
--- OUTSIDE RECORDS SUMMARY | 2025-05-26 19:30 | XMS_ITS | Encounter Summary ---
Author Organization [facility] Address [address] [place] [address] Care Team Providers Care Skip Hoist Engineer Name Role Phone Nathaly Knapp MD Primary Care Prov ider Encounter Details Date Type Department Care Team (Late st Contact Info) Description 05/26/[address] [facility] [address] [place] [address] Nathaly Knapp MD [address] [place], [place] Social History Tobacco Use Types Packs/Day [...] for your loved ones. For example, childcare administrator or elderly care for an older adult? [...] on file documented as of this encounter Plan of Treatment Upcoming Encounters Date Type Department Care Team (Late st Contact Info) Description 08/02/2025 12:30 PM EST Office Visit Adult Medicine [address] [phone] Nathaly Knapp MD [address] [place] [address] 10/17/2025 9:00 AM EDT Office Visit Adult Medicine [facility] [address] [place], [place] [phone] Nathaly Knapp MD [address] [place], [place] documented as of this encounter Goals Goal Patient Goal Type Associated Problems Recent Progress Patient-Stated? Author Pt goal General Yes Abihjit De Luna, OT Note: To be able [...] WFL for cooking, Patient will demo R computer builder strength >= 20# to be able to hold a pot for cooking, Patient will demo improved functional use of R upper extremity as evidenced by Quick Dash score <= 45 to be able to use a mar register, and Patient will perform HEP MOD I documented as of this encounter Visit Diagnoses Not on filedocumented in this encounter Additional Health Concerns Assessment Noted Time PHQ-9 Depression Total Score: 1 08/19/19 25 1:55 AM EDT A fall risk assessment has been complete d for the patient 10/14/2024 8:14 AM EDT documented as of this encounter Care Teams Skip Hoist Engineer Relationship Specialty Start Date End Date Nathaly Knapp MD [address] [place] [phone] PCP - General Internal Medicine 01/07/22 documented as of this encounter
--- OUTSIDE RECORDS SUMMARY | 2025-05-26 19:30 | XMS_ITS | Encounter Summary ---
Author Organization [facility] Address [address] [place] [address] Care Team Providers Care Filter Assembler Name Role Phone Nathaly Knapp MD Primary Care Prov ider Reason for Visit * Reason Onset Date Comments Fitting for DME 05/26/2025 Wheelchair Acces sories Encounter Details Date Type Department Care Team (Late st Contact Info) Description 05/26/2025 Telephone Adult Medicine [address] [phone] Nathaly Knapp MD [address] [place], [place] Social History Tobacco Use Types Packs/Day [...] do you feel lonely or isolated from ose around you? Rarely 10/13/2024 Food Risk [...] care for your loved ones. For example, child development director or elderly care for an older adult? [...] as of this encounter Progress Notes * Diaz Ventura - 05/26/2025 8:42 AM EST DWO for wheelchair accessories received via fax from [employer] - [facility]. documented in this encounter Plan of Treatment Upcoming Encounters Date Type Department Care Team (Late st Contact Info) Description 08/02/2025 12:30 PM EST Office Visit [address] [phone] Nathaly Knapp MD [address] [place] [address] 10/17/2025 9:00 AM EDT Office Visit [address] [phone] Nathaly Knapp MD [address] [place] [address] documented as of this encounter Goals Goal [...] WFL for cooking, Patient will demo R kettle hand strength >= 20# to be able to [...] documented as of this encounter Care Teams Filter Assembler Relationship Specialty Start Date End Date Nathaly Knapp MD [address] [place] [phone] PCP - General Internal Medicine 01/07/22 documented as of this encounter
== END 2025-05-26 16:07 | disposition home or self-care (01) ==
LOC: HO.HSM 15:47
PROVIDERS: PCP Internal Medicine; Visit Provider Psychiatry & Neurology Neurology
DX: G20.A2 Parkinson's disease without dyskinesia, with fluctuations (principal); G40.909 Epilepsy, unspecified, not intractable, without status epilepticus
CPT/HCPCS: 99214

== ENCOUNTER → 2025-05-26 15:46 | Outpatient (BNVA) | payer MEDICARE, SELFPAY | PROVIDERS: PCP Internal Medicine; Visit Provider Psychiatry & Neurology Neurology | DX: G20.A2 Parkinson's disease without dyskinesia, with fluctuations (principal); G40.909 Epilepsy, unspecified, not intractable, without status epilepticus; Z79.899 Other long term (current) drug therapy | CPT/HCPCS: 99212 ==